=== PATIENT | male | born 1960 | race Caucasian/White ===

== ENCOUNTER 2024-12-19 21:37 | Observation (INO) | payer MEDICARE, OTHER, SELFPAY ==
[2024-12-19] VITALS (14 sets, daily range): BP systolic 116–167; BP diastolic 58–98; PULSE 50–63; RESP 14–20; O2SAT 95–98; BMI 29.8
[2024-12-19] MEDS: D5W IV (21:50)
[2024-12-19] MEDS: NITROGLYCERIN IV (21:50)
--- NOTE | 2024-12-19 21:55 | ECG_ITS ---
APPROVED REPORT Exam: Resting ECG HR:59 bpm ECG Measurements Heart Rate 59 AXES PA 128 P 48 QRSd 134 QRS -31 QT 463 T -39 QTc 462 Conclusion SINUS BRADYCARDIA LEFT AXIS DEVIATION [QRS AXIS < -30] RIGHT BUNDLE BRANCH BLOCK [120+ ms QRS DURATION, UPRIGHT V1, 40+ ms S IN I/aVL/V4/V5/V6] VOLTAGE CRITERIA FOR LVH [MEETS CRITERIA IN ONE OF: R(aVL), S(V1), R(V5), R(V5/V6)+S(V1)] MODERATE T-WAVE ABNORMALITY, CONSIDER ANTEROLATERAL ISCHEMIA [-0.1+ mV T-WAVE IN V3-V6] MODERATE T-WAVE ABNORMALITY, CONSIDER INFERIOR ISCHEMIA [-0.1+ mV T-WAVE IN II/aVF] ABNORMAL ECG UNCONFIRMED REPORT Electronically signed by : Chris Fish MD 12/20/2024 16:40:00
--- NOTE | 2024-12-19 22:31 | PC.NURSE ---
Pt arrived to unit at 2144
[2024-12-19] MEDS: PANTOPRAZOLE 40MG TABLET 40 MG PO (23:08)
[2024-12-20] VITALS (36 sets, daily range): BP systolic 116–153; BP diastolic 56–85; PULSE 48–65; RESP 11–19; TEMP 36.4–37.2; O2SAT 94–98; BMI 29.4; BMI 29.8
--- NOTE | 2024-12-20 00:21 | P.HP_ITS ---
<Statement entered by Guillermo Oswald MD - 12/20/24 12:57> Rounded on patient after nurse practitioner. Personally examined and interviewed patient. Agree with exam findings and care plan as documented. History of Present Illness *Admission Date: 12/19/24 *Reason for visit:: Atypical chest pain *History of present illness: Received a phone call from [facility] emergency room physician about Alex De La Torre. The doctor for me of the patient that was having atypical chest pain and that he had contacted Dr. Liu about this. That the patient had an unusual EKG showing Wellens sign. The patient had had an upper gastric discomfort but no crushing chest pain for about 3 days tonight the convinced him to go to the ER. For this unusual EKG was found. While at [facility] the patient received aspirin Lovenox and started on a nitroglycerin drip. Patient was then transported for direct admission to [facility] and placed in the stepdown unit to wait probable catheterization in the a.m. Talking with the patient and his he really does not have much medical history at all no medications from a provider he noted that his family does not have a lot of cardiac disease. That his mother is still alive in her 90s and that her father did not until he was in his 90s. The patient is a non- smoker of average weight and basically states he does not go to the physician. On arrival second EKG done being T wave inversions with no t wave elevation from V3 through V6. V1 and 2 show some T wave elevation before inversion. There was no ST elevation in any of the leads. Serial troponins ordered labs ordered for the a.m. [facility] Disclaimer: The information contained in this section may have been updated after the patient was seen, as this information can be updated by other users. Medical History Hypertension Social History (Updated 12/20/24 @ 00:41 by Lionel Conti APRN) Smoking Status: Never smoker alcohol intake: never current occupational status: employed Travel in the last 8 weeks?: None Have you lived/traveled outside US in past 30 days?: No Contact w/someone who lives/traveled outside US past 30 days?: No Exposure to someone with infectious disease in past 14 days?: No Do you have a fever (greater than 100.4 F or 38 C)?: No Have you tested positive for COVID-19?: No Exposed to someone with COVID-19 in past 14 days?: No Do you have a sore throat?: No Do you have a cough?: No Do you have any weakness?: No Do you have any diarrhea?: No Are you experiencing any unusual bleeding?: No Do you have any muscle aches/pain?: No Do you have any abdominal pain?: No Are you experiencing loss of taste or smell?: No Other Medical History Have you received the Flu Vaccine for this season: No Have you received the Pneumonia Vaccine: No Review of Systems Review of Systems Review of systems:: pertinent systems reviewed and negative unless documented below Review of systems (narrative): Patient's blood pressure still slightly elevated into around the 140s. On nitroglycerin drip patient denies any chest pain crushing pain radiation to arms neck or jaw. Only complaint is that the pain had been at the upper abdomen just below the rib cage Constitutional Constitutional: Reports as per HPI Eyes Eyes: Reports as per HPI ENT Ears, Nose, Mouth, and Throat: Reports as per HPI *Cardiovascular Cardiovascular: Reports as per HPI *Respiratory Respiratory: Reports as per HPI *Gastrointestinal Gastrointestinal: Reports as per HPI Comments: Upper abdominal discomfort right the bottom of the sternum *Genitourinary Genitourinary: Reports as per HPI *Musculoskeletal Musculoskeletal: Reports as per HPI Integumentary/Breasts Skin/Breast: Reports as per HPI *Neurologic Neurologic: Reports as per HPI Psychiatric Psychiatric: Reports as per HPI Endocrine Endocrine: Reports as per HPI Hematologic/Lymphatic Hematologic/Lymphatic: Reports as per HPI Allergic/Immunologic Allergic/Immunologic: Reports as per HPI Meds Home Medications and Allergies Home Medications ?Medication ?Instructions ?Recorded ?Confirmed ?Type Lactobacillus rhamnosus-Bifidobac. 1 cap PO DAILY 05/1512/20/24 History animalis 3 billion cell capsule ([employer]) dicyclomine 20 mg tablet 20 mg PO DAILY 12/20/2405/15 History losartan 50 mg tablet 50 mg PO DAILY 12/20/2405/15 History multivit,stress formula-zinc tablet 1 tab PO DAILY 05/1512/20/24 History pantoprazole 40 mg tablet,delayed 40 mg PO HS 12/20/24 12/20/24 History release New Prescriptions to Start Prescriptions: Allergies Allergy/AdvReac Type Severity Reaction Status Date / Time No Known Allergies Allergy Verified 12/19/24 21:57 Exam Data for Last 24 hours Vital signs and Labs for Last 24 Hours: Pulse O2 Del Method 62 Room Air 12/19/24 21:57 12/19/24 23:00 I & O for Last 24 hours: Intake & Output 12/17/24 12/18/24 12/19/24 12/20/24 05:59 05:59 05:59 05:59 Intake Total 8.925 / 8.925 Balance 8.925 / 8.925 Weight 232 lb 5.875 oz Constitutional Constitutional: no acute distress, average body habitus and cooperative *Routine HEENT Exam Head: Present normocephalic and atraumatic Eye: Present EOMI and PERRL ENT: Present mucous membranes moist and nares patent *Routine Neck Exam Neck: Present supple and full ROM *Routine Respiratory Exam Respiratory: Present CTA bilaterally, normal respiratory effort, able to speak in complete sentences and symmetric chest movement Comments: Normal O2 sats on room air *Routine Cardiovascular Exam Cardiovascular: Present RRR, Normal S1, Normal S2 and bradycardia *Routine Abdominal Exam Abdominal: Present soft and normoactive bowel sounds *Routine Rectal Exam Rectal:: deferred *Routine Genitalia Exam Genitalia:: deferred *Routine Extremities Exam Extremities: Present full ROM, pulses intact and normal capillary refill Comments: No edema *Routine Skin Exam Skin: Present intact, dry and normal turgor *Routine Neurological Exam Neurological: Present alert, oriented X3, CN II-XII intact, moving all extremities, vision grossly intact, hearing grossly intact and normal speech Routine Psychiatric Exam Psychiatric: Present normal affect, normal thought process, cooperative, good insight and good judgment H&P: Result Impressions 1. Unusual apt upper gastric discomfort question unstable angina. Secondary Wellens cardiac pattern on twelve-lead EKG. 2. Hypertension Assessment and Plan *Assessment and plan (1) Chest pain, atypical: Status: Acute Category: Medical Code(s): R07.89 - Other chest pain (2) EKG abnormalities: Status: Acute Category: Medical Code(s): R94.31 - Abnormal electrocardiogram [ECG] [EKG] (3) Elevated troponin: Status: Acute Category: Medical Code(s): R79.89 - Other specified abnormal findings of blood chemistry (4) Elevated blood pressure reading: Status: Acute Category: Medical Code(s): R03.0 - Elevated blood-pressure reading, without diagnosis of hypertension Plan 64-year-old male who presented with chest pain that began 2 days prior to presenting to the ER. Presented to [facility]. Due to abnormal EKG, cardiology was consulted and recommended transfer. Patient accepted to [facility] by medicine after discussion with ER physician at [facility]. Monitoring overnight. Initial troponin less than 0.02. Cardiology to evaluate. Problems addressed as follows: Angina T wave inversions Hypertension - Unclear etiology at this time. Will monitor on telemetry. T wave inversions still present on EKG on admission per my review. Initial serial troponins less than 0.02. - Per my review of EKG, initial EKG at [facility] shows Wellen sign. - initiate irbesartan 150 mg daily. Wean nitroglycerin drip as tolerated - Echocardiogram ordered for Friday morning. - CBC, CMP, magnesium ordered for the morning -Differential includes CAD, pancreatitis, cholelithiasis. Lipase ordered for the morning - Continue morphine 2 mg IV every 2 hours for breakthrough pain, monitor for toxicity - Continue pantoprazole 40 mg nightly Full code Cardiac diet, n.p.o. at midnight Lovenox 40 mg subcu daily
[2024-12-20 00:59] LABS: Troponin I 0.02 ng/ml (0.00-0.034)
--- NOTE | 2024-12-20 01:21 | EXP.EVENT.NO ---
Blood pressure has decreased to 120 systolic or sometimes little below. Patient's heart rate is right around 40 appears to be a bundle branch block but has in sinus rhythm at this time. Patient has complained slightly that he feels some of that pressure coming back that is under the rib cage left side. He did not want anything for the pain nitroglycerin had been decreased to 5 mics Plan at this time we will go ahead since the patient is awake and get the chest x-ray done and will add a lipase to his morning labs.
[2024-12-20 01:22] LABS: POC Glucose,Bedside 103 gm/dL (70-110)
--- NOTE | 2024-12-20 01:30 | XR_ITS ---
PROCEDURE INFORMATION: Exam: XR Chest Exam date and time: 12/20/2024 1:27 AM Age: 64 years old Clinical indication: Chest wall pain; Additional info: Unstable chest pain TECHNIQUE: Imaging protocol: Radiologic exam of the chest. Views: 1 view. COMPARISON: No relevant prior studies available. FINDINGS: Lungs: Unremarkable. No consolidation. Pleural spaces: Unremarkable. No pleural effusion. No pneumothorax. Heart/Mediastinum: Unremarkable. No cardiomegaly. Bones/joints: Unremarkable. IMPRESSION: No acute findings.
--- NOTE | 2024-12-20 01:33 | PC.NURSE ---
Addendum entered by Marjorie Villanueva RN 12/20/24 05:46: Pt stated that his heart rate is always low. Pt also reports he believes his gallbladder is causing his pain, that his pain is typically worse after he eats. Pt reports pain with palpation to RUQ. No guarding noted. Abdomen is soft/non-distended. Pain is gone at this time. Pt does report slight headache. Refused Tylenol. VSS. Remains on nitro gtt @ 5 mcg/min. Current BP 116/61. Original Note: Pt reports LUQ pain is starting to come back. States it is not bad. Sates it is the same area that was hurting that made him come to ED. Rates pain. 05/31. Does not want Tylenol at this time. Spoke with Angie Stewart NP about this and also about pts BP, low HR, and current nitro gtt rate. Nitro gtt is now infusing @ 5mcg/min d/t pts BP continuing to decrease.
[2024-12-20 03:29] LABS: Troponin I 0.02 ng/ml (0.00-0.034)
[2024-12-20 06:33] LABS: Hematocrit 41.9 % (42.0-52.0); Hemoglobin 14.7 g/dL (14.1-18.0); Immature Granulocytes % 0.6 %; Mean Corpuscular HGB Conc 35.1 g/dL (31.8-35.4); Mean Corpuscular Hemoglobin 30.1 pg (27.0-31.2); Mean Corpuscular Volume 85.7 fl (80-94); Nucleated Red Blood Cells % 0 %; Platelet Count 248 K/mm3 (142-424); Red Blood Count 4.89 M/mm3 (4.60-6.20); Red Cell Distribution Width-SD 43.9 fL; White Blood Count 12.8 K/mm3 (4.8-10.8)
[2024-12-20 06:54] LABS: Anion Gap 10.9 mEq/L (5-15); Blood Urea Nitrogen 14 mg/dl (9-20); Calcium 8.7 mg/dl (8.4-10.2); Carbon Dioxide 24 mmol/L (22.0-30.0); Chloride 105 mmol/L (98-107); Creatinine Clearance Estimated 108 mL/min (50-200); Creatinine,Serum 0.80 mg/dl (0.66-1.25); Estimated Glomerular Filt Rate 97 ml/min (>60); GFR (African American) 117 ML/MIN (>60); Glucose 106 mg/dl (74-100); Lipase 50 U/L (23-300); Magnesium 1.4 mg/dl (1.6-2.3); Potassium 3.9 mmoL/L (3.5-5.1); Sodium 136 mmol/L (136-145)
[2024-12-20 07:03] LABS: Troponin I 0.02 ng/ml (0.00-0.034)
--- NOTE | 2024-12-20 08:08 | CT_ITS ---
PROCEDURE INFORMATION: Exam: CT Abdomen And Pelvis With Contrast Exam date and time: 12/20/2024 8:35 AM Age: 64 years old Clinical indication: Abdominal pain; Epigastric TECHNIQUE: Imaging protocol: Computed tomography of the abdomen and pelvis with contrast. Radiation optimization: All CT scans at this facility use at least one of these dose optimization techniques: automated exposure control; mA and/or kV adjustment per patient size (includes targeted exams where dose is matched to clinical indication); or iterative reconstruction. Contrast material: ISOVUE; Contrast volume: 75 ml; Contrast route: IV; COMPARISON: CR (CHEST, CXR AP LANDSCAPE) 12/20/2024 1:27 AM FINDINGS: Lungs: 8 x 8 mm subpleural nodule in the medial left lower lobe. Lung bases otherwise clear. Diaphragm: Tiny hiatal hernia. Liver: Normal. No mass. Gallbladder and biliary ducts: Moderately distended gallbladder with moderate wall thickening, secondary to obstructive lamellated calculus measuring 2.3 cm at the gallbladder neck. Pancreas: Normal. No ductal dilation. Spleen: Normal. No splenomegaly. Adrenal glands: Normal. No mass. Kidneys and ureters: Benign-appearing right renal cysts. No further follow-up needed..No renal or ureteral calculi or obstruction bilaterally.. Stomach and bowel: No bowel obstruction or acute inflammation. Appendix: No evidence of appendicitis. Intraperitoneal space: Unremarkable. No free air. No significant fluid collection. Vasculature: Unremarkable. No abdominal aortic aneurysm. Lymph nodes: Unremarkable. No enlarged lymph nodes. Urinary bladder: Unremarkable as visualized. Reproductive: Unremarkable as visualized. Bones/joints: Unremarkable. No acute fracture. Soft tissues: Unremarkable. IMPRESSION: 1. Moderately distended gallbladder with moderate wall thickening, secondary to obstructive lamellated calculus measuring 2.3 cm at the gallbladder neck. 2. No bowel obstruction or acute inflammation. 3. 8 x 8 mm subpleural nodule in the medial left lower lobe. Nonspecific. May represent subsegmental atelectasis, infectious or inflammatory etiology. Recommend dedicated chest CT for complete evaluation. COMMENTS: Consistent with the [employer]'s Incidental Findings Committee white paper (J Am Hilary Radiol 2018): Any incidental renal lesion less than 1 cm or classified as too small to characterize, or any incidental cystic renal lesion characterized as simple-appearing, is likely benign. No follow-up imaging is recommended for these lesions per consensus recommendations based on imaging criteria.
[2024-12-20] MEDS: IRBESARTAN 150MG TAB 150 MG PO (08:19)
[2024-12-20 08:22] LABS: Alanine Aminotransferase 30 U/L (12-78); Albumin Level 3.8 g/dl (3.5-5.0); Albumin/Globulin Ratio 1.4 (1.1-1.8); Alkaline Phosphatase 62 U/L (38-126); Anion Gap 11.8 mEq/L (5-15); Aspartate Amino Transferase 43 U/L (17-59); Bilirubin,Total 0.8 mg/dl (0.2-1.3); Blood Urea Nitrogen 14 mg/dl (9-20); Calcium 8.8 mg/dl (8.4-10.2); Carbon Dioxide 22 mmol/L (22.0-30.0); Chloride 105 mmol/L (98-107); Creatinine Clearance Estimated 108 mL/min (50-200); Creatinine,Serum 0.80 mg/dl (0.66-1.25); Estimated Glomerular Filt Rate 97 ml/min (>60); GFR (African American) 117 ML/MIN (>60); Globulin 2.8 g/dL (1.3-3.2); Glucose 109 mg/dl (74-100); Lipase 57 U/L (23-300); Potassium 3.8 mmoL/L (3.5-5.1); Sodium 135 mmol/L (136-145); Total Protein,Serum 6.6 g/dl (6.3-8.2)
--- NOTE | 2024-12-20 08:25 | PC.NURSE ---
radiology at bedside to take patient down to ct scan for ct of abdomen with contrast. pt going down by wheelchair
--- NOTE | 2024-12-20 08:40 | PC.NURSE ---
patient is back from ct scan
[2024-12-20] MEDS: SODIUM CHLORIDE 0.9% 10ML SYR (RAD ONLY) 10 ML IV (08:48)
[2024-12-20] MEDS: IOPAMIDOL-370 (76%);100ML BOTTLE 75 ML IV (08:48)
[2024-12-20] MEDS: MAGNESIUM SULFATE IN WATER 2 GM/50 ML PIGGYBACK IV ×3 (09:27→11:56)
--- NOTE | 2024-12-20 10:04 | PC.NURSE ---
called report to Erasmo Mckenzie RN on med surge pt is going to room 202.
--- NOTE | 2024-12-20 10:13 | PC.NURSE ---
patient transfer from ICU to [facility] via wheelchair with BROOKE Clancy @[id number]
[2024-12-20] MEDS: ACETAMINOPHEN 325MG TAB 650 MG PO (10:51)
--- NOTE | 2024-12-20 12:06 | HMH.PHAINT1 ---
Pharmacy Intervention Comments: MED LIST CORRECTED WITH PATIENT LIST AND FILL HX.
--- NOTE | 2024-12-20 12:19 | P.PN_ITS ---
Subjective *Date: 12/20/24 *Time: 12:19 Interval history: States pain somewhat better today. Mainly in the upper abdomen. Denies any otilia substernal pain or dyspnea. No nausea or vomiting. Stable on room air. Afebrile Questionnaires [facility] Link: [facility] Website Medical Exam Vital signs and Labs for Last 24 Hours: Vital Signs Temp Pulse Pulse Pulse Resp BP BP 12/20/24 11:58 98.1 F 57 L 16 126/76 12/20/24 10:00 56 L 17 138/78 12/20/24 09:00 12/20/24 08:10 97.6 F 56 L 11 L 124/77 12/20/24 08:00 58 L 16 124/71 12/20/24 08:00 54 L 12/20/24 08:00 54 L 12/20/24 07:00 12/20/24 06:40 134/74 12/20/24 06:40 56 L 17 12/20/24 06:00 127/72 12/20/24 06:00 54 L 16 12/20/24 05:20 123/71 12/20/24 05:20 53 L 16 12/20/24 05:00 12/20/24 04:16 51 L 12/20/24 04:10 51 L 18 125/58 L 12/20/24 04:01 55 L 12 134/76 12/20/24 04:00 98.0 F 12/20/24 03:50 55 L 18 128/73 12/20/24 03:40 52 L 18 129/65 12/20/24 03:30 52 L 16 119/59 L 12/20/24 03:21 54 L 12 123/74 12/20/24 03:00 48 L 18 119/56 L 12/20/24 03:00 12/20/24 02:50 51 L 18 131/69 12/20/24 02:50 49 L 17 131/69 12/20/24 02:40 51 L 17 122/67 12/20/24 02:30 50 L 18 130/71 12/20/24 02:30 49 L 18 130/71 12/20/24 02:20 51 L 17 131/70 12/20/24 02:20 51 L 17 131/70 12/20/24 02:10 54 L 19 124/74 12/20/24 02:01 52 L 15 123/58 L 12/20/24 02:00 50 L 17 123/58 L 12/20/24 01:50 51 L 15 133/69 12/20/24 01:40 50 L 15 133/73 12/20/24 01:30 51 L 18 138/73 12/20/24 01:20 51 L 18 127/59 L 12/20/24 01:10 53 L 16 116/56 L 12/20/24 01:00 12/20/24 00:53 51 L 15 127/71 12/20/24 00:40 52 L 17 127/72 12/20/24 00:20 53 L 16 124/62 12/20/24 00:10 53 L 16 127/61 12/20/24 00:00 50 L 16 127/73 12/20/24 00:00 52 L 12/20/24 00:00 97.9 F 12/19/24 23:51 51 L 17 132/72 12/19/24 23:40 50 L 17 116/58 L 12/19/24 23:30 52 L 16 128/78 12/19/24 23:20 52 L 17 131/75 12/19/24 23:10 54 L 16 136/76 12/19/24 23:00 54 L 14 131/77 12/19/24 23:00 12/19/24 22:50 57 L 17 134/76 12/19/24 22:40 56 L 17 144/79 H 12/19/24 22:20 63 14 133/75 12/19/24 22:10 62 20 135/82 12/19/24 22:07 60 20 146/85 H 12/19/24 21:57 62 12/19/24 21:55 62 12/19/24 21:50 61 167/98 H Pulse Ox O2 Del Method O2 Flow Rate 12/20/24 11:58 96 12/20/24 10:00 95 Room Air 12/20/24 09:00 Room Air 12/20/24 08:10 96 Room Air 12/20/24 08:00 95 Room Air 12/20/24 08:00 96 Room Air 12/20/24 08:00 12/20/24 07:00 Room Air 12/20/24 06:40 12/20/24 06:40 96 12/20/24 06:00 12/20/24 06:00 95 12/20/24 05:20 12/20/24 05:20 95 12/20/24 05:00 Room Air 12/20/24 04:16 12/20/24 04:10 95 Nasal Cannula 6 12/20/24 04:01 96 Nasal Cannula 6 12/20/24 04:00 12/20/24 03:50 96 Nasal Cannula 6 12/20/24 03:40 94 L Nasal Cannula 6 12/20/24 03:30 96 Nasal Cannula 6 12/20/24 03:21 96 Nasal Cannula 6 12/20/24 03:00 94 L Nasal Cannula 6 12/20/24 03:00 Room Air 12/20/24 02:50 96 Nasal Cannula 5 12/20/24 02:50 97 Room Air 12/20/24 02:40 94 L Nasal Cannula 5 12/20/24 02:30 94 L Nasal Cannula 5 12/20/24 02:30 95 Room Air 12/20/24 02:20 94 L Nasal Cannula 5 12/20/24 02:20 95 Room Air 12/20/24 02:10 94 L Nasal Cannula 6 12/20/24 02:01 94 L Nasal Cannula 6 12/20/24 02:00 95 Room Air 12/20/24 01:50 97 Room Air 12/20/24 01:40 98 Room Air 12/20/24 01:30 97 Room Air 12/20/24 01:20 95 Room Air 12/20/24 01:10 96 Room Air 12/20/24 01:00 Room Air 12/20/24 00:53 96 Room Air 12/20/24 00:40 95 Room Air 12/20/24 00:20 95 Room Air 12/20/24 00:10 95 Room Air 12/20/24 00:00 96 Room Air 12/20/24 00:00 12/20/24 00:00 12/19/24 23:51 96 Room Air 12/19/24 23:40 95 Room Air 12/19/24 23:30 96 Room Air 12/19/24 23:20 96 Room Air 12/19/24 23:10 96 Room Air 12/19/24 23:00 96 Room Air 12/19/24 23:00 Room Air 12/19/24 22:50 96 Room Air 12/19/24 22:40 96 Room Air 12/19/24 22:20 98 Room Air 12/19/24 22:10 96 12/19/24 22:07 96 Room Air 12/19/24 21:57 Room Air 12/19/24 21:55 12/19/24 21:50 96 Room Air Intake and Output 12/19/24 12/20/24 12/20/24 23:59 07:59 15:59 Intake Total 8.925 / 8.925 4.3 / 115.1 110.8 / 115.1 Output Total 400 / 400 Balance 8.925 / 8.925 4.3 / -284.9 -289.2 / -284.9 Intake: Intake, Total IV Amount 8.925 / 8.925 4.3 / 115.1 110.8 / 115.1 Magnesium Sulfate in Water 2 gm 100 / 100 In 50 ml @ 50 mls/hr IV Q1H [facility] Rx#:[id number] Nitroglycerin in 5 % Dextrose 8.925 / 8.925 4.3 / 15.1 10.8 / 15.1 250 ml @ 5 MCG/MIN 1.5 mls/hr IV .Q24H [facility] Rx#:[id number] Output: Output, Urine Amount 400 / 400 Other: Weight 105.4 kg 103.918 kg 105.4 kg Patient Weight 12/20/24 23:59 Weight 105.4 kg Laboratory Results - last 24 hr 12/19/24 23:45: Troponin I 0.02 12/20/24 01:13: POC Glucose 103 12/20/24 02:35: Troponin I 0.02 12/20/24 05:07: Sodium 135 L, Potassium 3.8, Chloride 105, Carbon Dioxide 22, Anion Gap 11.8, BUN 14, Creatinine 0.80, Estimated Creat Clear 108, Estimated GFR 97, Est GFR ( Amer) 117, Glucose 109 H, Calcium 8.8, Total Bilirubin 0.8, AST 43, ALT 30, Alkaline Phosphatase 62, Total Protein 6.6, Albumin 3.8, Globulin 2.8, Albumin/Globulin Ratio 1.4, Lipase 57 12/20/24 05:27: WBC 12.8 H, RBC 4.89, Hgb 14.7, Hct 41.9 L, MCV 85.7, MCH 30.1, MCHC 35.1, RDW 14.2, Plt Count 248, MPV 12.3 H, Neut % (Auto) 72.5, Lymph % (Auto) 15.1, [place] % (Auto) 9.4 H, Eos % (Auto) 2.2, Baso % (Auto) 0.2, Neut # (Auto) 9.3 H, Lymph # (Auto) 1.9, [place] # (Auto) 1.2 H, Eos # (Auto) 0.3, Baso # (Auto) 0.0, Sodium 136, Potassium 3.9, Chloride 105, Carbon Dioxide 24, Anion Gap 10.9, BUN 14, Creatinine 0.80, Estimated Creat Clear 108, Estimated GFR 97, Est GFR ( Amer) 117, Glucose 106 H, Calcium 8.7, Magnesium 1.4 L, Troponin I 0.02, Lipase 50 I & O for Labs for Last 24 Hours: Intake & Output 12/17/24 12/18/24 12/19/24 12/20/24 23:59 23:59 23:59 23:59 Intake Total 8.925 / 8.925 115.1 / 115.1 Output Total 400 / 400 Balance 8.925 / 8.925 -284.9 / -284.9 Weight 105.4 kg 105.4 kg Constitutional: Present no acute distress, average body habitus and cooperative Head: Present atraumatic and normocephalic ENT: Present normal exam Respiratory: Absent respiratory distress, rhonchi, stridor, wheezes or crackles Cardiac: Present Reg Rate and Rhythm GI: Present soft, tenderness (Nonfocal, diffuse in upper abdomen) and normal bowel sounds; Absent distention, guarding or rebound Extremities: Present normal inspection and full ROM Skin: Present intact; Absent erythema Neuro: Present Grossly Intact, alert, awake, oriented x 3 and moves all extremities Assessment and Plan *Assessment and plan (1) Chest pain, atypical: Status: Acute Category: Medical Code(s): R07.89 - Other chest pain (2) EKG abnormalities: Status: Acute Category: Medical Code(s): R94.31 - Abnormal electrocardiogram [ECG] [EKG] (3) Elevated troponin: Status: Acute Category: Medical Code(s): R79.89 - Other specified abnormal findings of blood chemistry (4) Elevated blood pressure reading: Status: Acute Category: Medical Code(s): R03.0 - Elevated blood-pressure reading, without diagnosis of hypertension (5) T wave inversion in EKG: Status: Acute Category: Medical Code(s): R94.31 - Abnormal electrocardiogram [ECG] [EKG] Plan 64-year-old male who presented with chest pain that began 2 days prior to presenting to the ER. Presented to [facility]. Due to abnormal EKG, cardiology was consulted and recommended transfer. Patient accepted to [facility] by medicine after discussion with ER physician at [facility] . Monitored on telemetry overnight. Serial troponins less than 0.02. Still having mild epigastric pain but no otliia chest pain. Cardiology to evaluate in the morning. Problems addressed as follows: Angina T wave inversions Hypertension - Unclear etiology at this time. Will monitor on telemetry. T wave inversions still present. Initial serial troponins less than 0.02. - Per my review of EKG, initial EKG at [facility] shows Wellen sign. - initiate irbesartan 150 mg daily. Will discontinue nitroglycerin drip - Echocardiogram ordered for the morning Abdominal pain - Patient does mention component of his pain that began yesterday after eating at [employer]. Obtained CT of abdomen that shows moderately distended gallbladder with wall thickening and stone obstructing per my review. Stone measures a little over 2 cm at the gallbladder neck. Liver enzymes normal with bilirubin 0.8, AST 43, ALT 30, alk phos 62. Lipase 50 -Repeat CBC, CMP, magnesium ordered for the morning. White count of 12.8. Will initiate Zosyn 3.375 g every 8 hours empirically for now for intra-abdominal infection. -Surgery consulted to evaluate patient in the morning. - Continue morphine 2 mg IV every 4 hours for breakthrough pain - Continue pantoprazole 40 mg nightly Full code Cardiac diet, n.p.o. at midnight Lovenox 40 mg subcu once today
[2024-12-20] MEDS: PIPERCILLIN/TAZO 3.375 GM in 0.9 % SODIUM CHLORIDE 50 ML IV ×2 (13:45→20:19)
[2024-12-20] MEDS: PANTOPRAZOLE 40MG TABLET 40 MG PO (20:18)
[2024-12-21] VITALS (7 sets, daily range): BP systolic 120–142; BP diastolic 60–75; PULSE 55–68; RESP 12–19; TEMP 36.6–36.9; O2SAT 96–97; BMI 28.3; BMI 29.5
[2024-12-21] MEDS: PIPERCILLIN/TAZO 3.375 GM in 0.9 % SODIUM CHLORIDE 50 ML IV ×2 (04:23→15:24)
--- NOTE | 2024-12-21 05:52 | CA_ITS ---
APPROVED REPORT EXAM: Comprehensive 2D, Doppler, and color-flow Echocardiogram Specialty Department Supervisor: Ciarra Klein RT(R) Ht: 6 ft 2 in Wt: 232lbs BSA: 2.31 BP: 119/56 mmHg Indications: chest pain, elevated troponin 2D Dimensions LA Volume 36.30 mL LA Volume Index 15.65 mL/m2 (M/F) 16-34 EF AP4 56.00 % GL Strain -16.0 % M-Mode Dimensions RVDd 3.13 cm (0.9-2.6) LA Diam 3.83 cm (1.9-4.0) LVDd 5.25 cm (3.5-5.7) LVDs 3.77 cm (3.5-5.7) IVSd 0.93 cm (0.6-1.1) PWd 0.97 cm (0.6-1.1) EF (Teich) 54.10% FS 28.20% EDV (Teich) 132.40 mL ESV (Teich) 60.80 mL LV Diastology E Decel Time 307 (160-240 msec) E/A Ratio 0.54 Mitral Valve MV A Velocity 89.0 (40-130 cm/s) E/A Ratio 0.54 Tricuspid Valve TR P. Velocity 200.00 cm/s Left Ventricle The left ventricle is normal size. Left ventricular systolic function is normal. The left ventricular ejection fraction is within the normal range. There is increased left ventricular wall thickness. There is normal LV segmental wall motion. The left ventricular diastolic function is normal. LVEF is 55%. Right Ventricle The right ventricle is normal size. The right ventricular systolic function is normal. Atria The left atrium size is normal. The right atrium size is normal. There is no color Doppler evidence of interatrial shunt. Aortic Valve The aortic valve opens well. There is no hemodynamically significant aortic valvular stenosis. No aortic regurgitation is present. Mitral Valve The mitral valve is normal in structure. No evidence of mitral valve stenosis. Trace mitral regurgitation is present. Tricuspid Valve The tricuspid valve leaflets are thin and pliable. Trace tricuspid regurgitation. There is insufficient TR jet to estimate RVSP. Pulmonic Valve The pulmonary valve is grossly normal in structure. Trace pulmonic valve regurgitation is present. Great Vessels The aortic root is normal in size. IVC is normal in size and collapses >50% with inspiration. Pericardium There is no pericardial effusion. Other Information Study Quality: Fair Conclusion Normal biventricular systolic function. No significant valvular stenosis or regurgitation. Electronically signed by : Sona Nunez MD 12/21/2024 12:34:05
--- NOTE | 2024-12-21 05:56 | PC.NURSE ---
Pt AOx4, pleasant. Continually denies pain or any additional needs throughout shift. Resting in bed with eyes open, respirations even and unlabored. Bed is low, locked, and call light is in reach.
[2024-12-21 06:11] LABS: Hematocrit 43.4 % (42.0-52.0); Hemoglobin 15.4 g/dL (14.1-18.0); Immature Granulocytes % 0.8 %; Mean Corpuscular HGB Conc 35.5 g/dL (31.8-35.4); Mean Corpuscular Hemoglobin 30.2 pg (27.0-31.2); Mean Corpuscular Volume 85.1 fl (80-94); Nucleated Red Blood Cells % 0 %; Platelet Count 245 K/mm3 (142-424); Red Blood Count 5.10 M/mm3 (4.60-6.20); Red Cell Distribution Width-SD 43.8 fL; White Blood Count 12.3 K/mm3 (4.8-10.8)
[2024-12-21 06:23] LABS: Alanine Aminotransferase 50 U/L (12-78); Albumin Level 3.9 g/dl (3.5-5.0); Albumin/Globulin Ratio 1.3 (1.1-1.8); Alkaline Phosphatase 55 U/L (38-126); Anion Gap 11.9 mEq/L (5-15); Aspartate Amino Transferase 44 U/L (17-59); Bilirubin,Total 1.5 mg/dl (0.2-1.3); Blood Urea Nitrogen 14 mg/dl (9-20); Calcium 8.7 mg/dl (8.4-10.2); Carbon Dioxide 23 mmol/L (22.0-30.0); Chloride 105 mmol/L (98-107); Creatinine Clearance Estimated 95 mL/min (50-200); Creatinine,Serum 1.10 mg/dl (0.66-1.25); Estimated Glomerular Filt Rate 67 ml/min (>60); GFR (African American) 81 ML/MIN (>60); Globulin 3.0 g/dL (1.3-3.2); Glucose 106 mg/dl (74-100); Magnesium 1.9 mg/dl (1.6-2.3); Potassium 3.9 mmoL/L (3.5-5.1); Sodium 136 mmol/L (136-145); Total Protein,Serum 6.9 g/dl (6.3-8.2)
[2024-12-21 06:48] LABS: Cholesterol 144 mg/dl (140-200); HDL Cholesterol 36 mg/dl (40-60); Triglycerides 72 mg/dl (30-150)
--- NOTE | 2024-12-21 06:59 | US_ITS ---
FINAL REPORT CLINICAL HISTORY: eval GB FINDINGS: Sonographic images of the right upper quadrant were obtained. The pancreas is partially obscured.The liver has an unremarkable appearance. The gallbladder is enlarged. There is a small amount of sludge. An echogenic shadowing focus is seen in the neck of the gallbladder, probably representing a stone. There is no evidence of biliary ductal dilatation.The common duct measures 3 mm. Limited images of the right kidney demonstrate benign-appearing cysts in the right kidney measuring up to 1.9 cm. No hydronephrosis. IMPRESSION: Stone and sludge in a distended gallbladder. Right kidney cyst. Reviewed, Interpreted and Dictated by Demetris Drake MD Transcribed by Milena Plascencia Authenticated and [facility]
--- NOTE | 2024-12-21 07:46 | EXP.SURG.CON ---
History of Present Illness *Admission Date: 12/19/24 *Reason for visit:: Calculous cholecystitis *History of present illness: This is a 64-year-old gentleman seen in consultation from the primary service for evaluation regarding possible gallbladder disease. His initial presenting symptoms are forwarded below as part of the emergency department evaluation/admission H&P. Currently he feels much better . No fevers. No jaundice. Part of the patient's initial evaluation included a CT scan of the abdomen pelvis that revealed a moderately distended gallbladder with moderate wall thickening and a 2.3 cm calculus at the gallbladder neck. Forwarded from emergency department evaluation/admission H&P: Received a phone call from [facility] emergency room physician about Alex De La Torre. The doctor for me of the patient that was having atypical chest pain and that he had contacted Dr. Liu about this. That the patient had an unusual EKG showing Wellens sign. The patient had had an upper gastric discomfort but no crushing chest pain for about 3 days tonight the convinced him to go to the ER. For this unusual EKG was found. While at [facility] the patient received aspirin Lovenox and started on a nitroglycerin drip. Patient was then transported for direct admission to [facility] and placed in the stepdown unit to wait probable catheterization in the a.m. Talking with the patient and his he really does not have much medical history at all no medications from a provider he noted that his family does not have a lot of cardiac disease. That his mother is still alive in her 90s and that her father did not until he was in his 90s. The patient is a non-smoker of average weight and basically states he does not go to the physician. On arrival second EKG done being T wave inversions with no t wave elevation from V3 through V6. V1 and 2 show some T wave elevation before inversion. There was no ST elevation in any of the leads. Serial troponins ordered labs ordered for the a.m. [facility] Disclaimer: The information contained in this section may have been updated after the patient was seen, as this information can be updated by other users. Medical History Hypertension Social History (Updated 12/20/24 @ 00:41 by Lionel Conti APRN) Smoking Status: Never smoker alcohol intake: never current occupational status: employed Travel in the last 8 weeks?: None Have you lived/traveled outside [place] in past 30 days?: No Contact w/someone who lives/traveled outside US past 30 days?: No Exposure to someone with infectious disease in past 14 days?: No Do you have a fever (greater than 100.4 F or 38 C)?: No Have you tested positive for COVID-19?: No Exposed to someone with COVID-19 in past 14 days?: No Do you have a sore throat?: No Do you have a cough?: No Do you have any weakness?: No Do you have any diarrhea?: No Are you experiencing any unusual bleeding?: No Do you have any muscle aches/pain?: No Do you have any abdominal pain?: No Are you experiencing loss of taste or smell?: No Review of Systems *Neurologic Neurologic: Reports as per [facility] Meds Home Medications and Allergies Home Medications ?Medication ?Instructions ?Recorded ?Confirmed ?Type Lactobacillus rhamnosus-Bifidobac. 1 cap PO DAILY 12/20/24 12/20/24 History animalis 3 billion cell capsule (Encarnate) dicyclomine 20 mg tablet 20 mg PO DAILY 12/20/24 12/20/24 History losartan 50 mg tablet 50 mg PO DAILY 12/20/24 12/20/24 History multivit,stress formula-zinc tablet 1 tab PO DAILY 12/20/24 12/20/24 History pantoprazole 40 mg tablet,delayed 40 mg PO HS 12/20/24 12/20/24 History release New Prescriptions to Start Prescriptions: Allergies Allergy/AdvReac Type Severity Reaction Status Date / Time No Known Allergies Allergy Verified 12/19/24 21:57 Exam (Inpt) Vital signs and Labs for Last 24 Hours: Temp Pulse Resp BP Pulse Ox O2 Del Method O2 Flow Rate 98.4 F 62 12 121/75 96 Room Air 6 09/02/25 04:00 12/21/24 04:00 12/21/24 04:00 12/21/24 04:00 12/21/24 04:00 12/21/24 06:31 12/20/24 04:10 Laboratory Results - last 24 hr 12/20/24 05:07: Sodium 135 L, Potassium 3.8, Chloride 105, Carbon Dioxide 22, Anion Gap 11.8, BUN 14, Creatinine 0.80, Estimated Creat Clear 108, Estimated GFR 97, Est GFR ( Amer) 117, Glucose 109 H, Calcium 8.8, Total Bilirubin 0.8, AST 43, ALT 30, Alkaline Phosphatase 62, Total Protein 6.6, Albumin 3.8, Globulin 2.8, Albumin/Globulin Ratio 1.4, Lipase 57 12/20/24 05:27: Potassium 3.9, BUN 14, Creatinine 0.80, Est GFR ( Amer) 117, Glucose 106 H 12/21/24 05:50: WBC 12.3 H, RBC 5.10, Hgb 15.4, Hct 43.4, MCV 85.1, MCH 30.2, MCHC 35.5 H, RDW 14.0, Plt Count 245, MPV 11.9 H, Neut % (Auto) 69.3, Lymph % (Auto) 15.7, [place] % (Auto) 12.3 H, Eos % (Auto) 1.6, Baso % (Auto) 0.3, Neut # (Auto) 8.5 H, Lymph # (Auto) 1.9, [place] # (Auto) 1.5 H, Eos # (Auto) 0.2, Baso # (Auto) 0.0, Sodium 136, Potassium 3.9, Chloride 105, Carbon Dioxide 23, Anion Gap 11.9, BUN 14, Creatinine 1.10 D, Estimated Creat Clear 95, Estimated GFR 67, Est GFR ( Amer) 81 D, Glucose 106 H, Calcium 8.7, Magnesium 1.9 D, Total Bilirubin 1.5 H, AST 44, ALT 50 D, Alkaline Phosphatase 55, Total Protein 6.9, Albumin 3.9, Globulin 3.0, Albumin/Globulin Ratio 1.3, Triglycerides 72, Cholesterol 144, LDL Cholesterol Direct 84.91 L, VLDL Cholesterol 14, HDL Cholesterol 36 L, Cholesterol/HDL Ratio 4.0 H I & O for Labs for Last 24 Hours: Intake & Output 12/18/24 12/19/24 12/20/24 12/21/24 11:59 11:59 11:59 11:59 Intake Total 124.025 / 124.025 760 / 760 Output Total 400 / 400 300 / 300 Balance -275.975 / -275.975 460 / 460 Weight 232 lb 5.875 oz 221 lb Constitutional: no acute distress Respiratory: Absent respiratory distress Cardiac: Absent Tachycardia GI: Present soft Results Labs 12/21/24 05:50 12/21/24 05:50 Labs: Laboratory Results - last 24 hr 12/20/24 05:07: Sodium 135 L, Potassium 3.8, Chloride 105, Carbon Dioxide 22, Anion Gap 11.8, BUN 14, Creatinine 0.80, Estimated Creat Clear 108, Estimated GFR 97, Est GFR ( Amer) 117, Glucose 109 H, Calcium 8.8, Total Bilirubin 0.8, AST 43, ALT 30, Alkaline Phosphatase 62, Total Protein 6.6, Albumin 3.8, Globulin 2.8, Albumin/Globulin Ratio 1.4, Lipase 57 12/20/24 05:27: Potassium 3.9, BUN 14, Creatinine 0.80, Est GFR ( Amer) 117, Glucose 106 H 12/21/24 05:50: WBC 12.3 H, RBC 5.10, Hgb 15.4, Hct 43.4, MCV 85.1, MCH 30.2, MCHC 35.5 H, RDW 14.0, Plt Count 245, MPV 11.9 H, Neut % (Auto) 69.3, Lymph % (Auto) 15.7, [place] % (Auto) 12.3 H, Eos % (Auto) 1.6, Baso % (Auto) 0.3, Neut # (Auto) 8.5 H, Lymph # (Auto) 1.9, [place] # (Auto) 1.5 H, Eos # (Auto) 0.2, Baso # (Auto) 0.0, Sodium 136, Potassium 3.9, Chloride 105, Carbon Dioxide 23, Anion Gap 11.9, BUN 14, Creatinine 1.10 D, Estimated Creat Clear 95, Estimated GFR 67, Est GFR ( Amer) 81 D, Glucose 106 H, Calcium 8.7, Magnesium 1.9 D, Total Bilirubin 1.5 H, AST 44, ALT 50 D, Alkaline Phosphatase 55, Total Protein 6.9, Albumin 3.9, Globulin 3.0, Albumin/Globulin Ratio 1.3, Triglycerides 72, Cholesterol 144, LDL Cholesterol Direct 84.91 L, VLDL Cholesterol 14, HDL Cholesterol 36 L, Cholesterol/HDL Ratio 4.[address] scan - abdomen: report reviewed and image reviewed CT scan - pelvis: report reviewed and image reviewed Assessment and Plan *Assessment and plan (1) Calculous cholecystitis: Status: Acute Qualifiers: Cholecystitis acuity: unspecified acuity Biliary obstruction: without biliary obstruction Qualified Code(s): K80.10 - Calculus of gallbladder with chronic cholecystitis without obstruction Category: Medical Code(s): K80.10 - Calculus of gallbladder with chronic cholecystitis without obstruction Plan: Radiographic evidence of uncertain significance as this may represent chronic anomaly, acute anomaly, or acute on chronic anomaly. The patient's recent symptomatology may or may not be related to biliary disease (at least to some degree). He is currently undergoing evaluation by the cardiology service. If he is deemed an appropriate operative candidate, proceeding with laparoscopic cholecystectomy in the near future likely warranted. (2) Hyperbilirubinemia: Status: Acute Category: Medical Code(s): E80.6 - Other disorders of bilirubin metabolism Plan: Possibly transient in nature. Possibly secondary to acute on chronic calculous cholecystitis. 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 Continue serial evaluation
[2024-12-21] MEDS: IRBESARTAN 150MG TAB 150 MG PO (08:02)
--- NOTE | 2024-12-21 11:20 | CT_ITS ---
APPROVED REPORT Textile Finisher: CLINICAL INDICATION Chest Pain TECHNIQUE Image Acquisition: A 128 slice MDCT scanner ([employer] View) was used for data acquisition. A noncontrast coronary calcium scan was performed. A CT attenuation threshold of 130 Hounsfield units (HU) was used for the detection of calcium in contiguous voxels of 1 sq mm in area to be counted as individual lesions. Bolus tracking in the ascending aorta with a threshold of 180 HU was performed. Immediately afterwards, ECG synchronized cardiac CT was then performed from the cardiac base to apex using retrospective gating with ECG tube current modulation. A total of 85 mL of Isovue 370 mg/mL contrast medium was administered at 5 mL/sec followed by a saline flush using a biphasic injection protocol. A tube voltage of 120 KVp was used. The average heart rate at the time of acquisition was 56 bpm and regular. Image Reconstruction Transaxial images were reconstructed at 0.67 mm slide thickness. Data was reviewed interactively on an advanced workstation capable of 2 and 3-dimensional displays in all conventional reconstruction formats, including multiplanar reformations, maximum intensity projections, curved multiplanar reformations, and volume rendered reconstructions. When applicable, selected routine images describing the relevant coronary anatomy and pathology were saved and sent to PACS. Complications None Technical Quality Overall image quality was good. Coronary artery opacification was adequate. Total DLP (Dose-Length Product) is 1775.3 mGy-cm. The reported value represents the total of one or more individual components during the CT acquisition of this date and at this time, and as such, the same value may appear in more than one CT report depending on the interpreting/reporting physicians. COMPARISON None FINDINGS CT Coronary Calcium Scoring LMA (Left Main Artery) = 0 LAD (Left Anterior Descending) = 0 LCX (Left Coronary Circumflex) = 0 RCA (Right Coronary Artery) = 0 Total Calcium Score = 0 using the AJ-130 method. The interpretation of the calcium heart score is based on the following continuum*: 0 = no calcified plaque detected (risk of coronary artery disease is very low ??? less than 5%) 1-10 = calcium detected in extremely minimal levels (risk of coronary diseases is still low ??? less than 10%) 11-100 = mild levels of plaque detected with certainty (mild or minimal narrowing of heart arteries is likely) 101-400 = definite,at least moderate levels of plaque detected (relatively high risk of a heart attack within 3-5 years) >401-999 = extensive levels of plaque detected (high risk of heart attack, high levels of vascular disease are present, high likelihood of at least one significant coronary narrowing) *The calcium heart score quantifies the burden of coronary calcification/plaque in the coronary arteries. The calcium heart score is not able to evaluate the presence or burden of non-calcified (i.e. soft) plaque. There is no identifiable calcification in the aortic valve, mitral annulus or mitral valve, pericardium, or myocardium. Coronary CT Angiography The coronary arterial system is right dominant. Quantitative Stenosis Grading: Left Main (LM): The left main originates normally from the left sinus of Valsalva. The LM bifurcates into the left anterior descending artery and left circumflex artery. The LM is patent with no evidence of atherosclerosis. Left Anterior Descending (LAD) and Diagonal Branches: The LAD gives off 3 diagonal branch(es). The LAD and its branches are patent with no evidence of atherosclerosis. There is no evidence of LAD-myocardial bridge. Left Circumflex (LCX) and Obtuse Marginals (OM): The LCX gives off 1 Obtuse Marginal (OM) branch(es). The LCX and its branches are patent with no evidence of atherosclerosis. Right Coronary Artery (RCA): The RCA originates normally from the right sinus of Valsalva. The RCA gives off a posterior descending artery (PDA) and posterolateral (PL) branches. There is a noncalcified plaque noted in the ostial RCA with up to 25-50% luminal stenosis. Non-Coronary Cardiac Findings: Analysis of the left ventricular (LV) structure and function was performed after 3-D reconstruction of the LV from axial images, with user-corrected automatic contouring for assessment of LV volumes and user-defined reconstruction from oblique planes for measurement of 3-D cardiac structure and function. -The left ventricle systolic function is normal. -There is no left atrial appendage filling defect. Two right pulmonary veins and two left pulmonary veins drain normally into the left atrium. -No pericardial thickening or calcification. -Central and branch pulmonary arteries in the [id number] are unremarkable. -Thoracic aorta within the visualized thoracic aortic-branches in the [id number] is unremarkable. Extracardiac Structures No significant extra-cardiac findings. Note, however, that this study is focused on the cardiac findings. IMPRESSION -Absence of coronary calcification with an Agatston score = 0 using the AJ-130 method. -Noncalcified plaque noted in the ostial RCA with up to 25-50% luminal stenosis, but no evidence of significant flow-limiting atherosclerosis of the coronary arteries. -CAD-RADS 2. Management recommendations per ACC/AHA guidelines*, as clinically appropriate. *Recommendations: CAD RADS 0: Reassurance. Consider non-atherosclerotic causes of chest pain. CAD RADS 1: Consider non-atherosclerotic causes of chest pain. Consider preventive therapy and risk factor modification. CAD RADS 2: Consider non-atherosclerotic causes of chest pain. Consider preventive therapy and risk factor modification, particularly for patients with nonobstructive plaque in multiple segments. CAD RADS 3: Consider further functional testing. Consider symptom-guided anti-ischemic and preventive pharmacotherapy as well as risk factor modification per published guideline statements. CAD RADS 4A: Consider further functional testing or invasive coronary angiography with revascularization per published guideline statements. Consider symptom-guided anti-ischemic and preventive pharmacotherapy as well as risk factor modification per published guideline statements. CAD RADS 4B: Invasive coronary angiography recommended with revascularization per published guideline statements. Consider symptom-guided anti-ischemic and preventive pharmacotherapy as well as risk factor modification per published guideline statements. CAD RADS 5: Consider invasive angiography and/or viability assessment with revascularization per published guideline statements. Consider symptom-guided anti-ischemic and preventive pharmacotherapy as well as risk factor modification per published guideline statements. CRITICAL RESULT None COMMUNICATION Per this written report The coronary and cardiac findings of this CCTA were reviewed, reported, and signed by Jemal Nunez MD ([employer]) Conclusion Electronically signed by : Sona Nunez MD 12/21/2024 15:35:00
--- NOTE | 2024-12-21 11:33 | P.CONCA_ITS ---
History of Present Illness History of Present Illness Consult date: 12/21/24 Requesting physician: Guillermo Oswald Consult reason: chest pain Chief complaint: chest/abdominal pain History of present illness: 64-year-old white male without known cardiovascular disease, non-smoker nondiabetic who presented to [facility] emergency room with complaints of severe epigastric pain and elevated blood pressure 170s. Patient states symptoms began approximately 1 hour after eating a heavy meal at [facility] including steak and potatoes. In the emergency room in [facility] he had significant ischemic changes including deep T wave inversions leads V2 and V3. Initial troponin was normal but patient was transferred for ACS rule out. On evaluation here serial troponins are normal x 3. He reports resolution of symptoms. He thinks symptoms improved after nitroglycerin at the other ER but is unclear if he also received GI cocktail or morphine there. CT abdomen here shows obstructing gallstone of 2.5 cm with moderate gallbladder distention. Pt states he had been previously made aware of a gallstone but it had not historically been problematic. He was evaluated by general surgery this morning who deferred intervention until CV evaluation is complete. Patient is not septic and has only very mild tenderness on abdominal palpation. [facility] Disclaimer: The information contained in this section may have been updated after the patient was seen, as this information can be updated by other users. Medical History Hypertension Social History Smoking Status: Never smoker alcohol intake: never current occupational status: employed Travel in the last 8 weeks?: None Have you lived/traveled outside US in past 30 days?: No Contact w/someone who lives/traveled outside US past 30 days?: No Exposure to someone with infectious disease in past 14 days?: No Do you have a fever (greater than 100.4 F or 38 C)?: No Have you tested positive for COVID-19?: No Exposed to someone with COVID-19 in past 14 days?: No Do you have a sore throat?: No Do you have a cough?: No Do you have any weakness?: No Do you have any diarrhea?: No Are you experiencing any unusual bleeding?: No Do you have any muscle aches/pain?: No Do you have any abdominal pain?: No Are you experiencing loss of taste or smell?: No Review of Systems Constitutional Constitutional: Denies fatigue and Denies weakness Eyes Eyes: Denies loss of vision ENT Ears, Nose, Mouth, and Throat: Denies hearing loss *Cardiovascular Cardiovascular: Denies chest pain and Denies dyspnea *Respiratory Respiratory: Denies cough and Denies dyspnea *Gastrointestinal Gastrointestinal: Reports abdominal pain, Denies change in stool character, Denies nausea and Denies vomiting *Genitourinary Genitourinary: Denies difficulty urinating *Musculoskeletal Musculoskeletal: Denies muscle weakness Integumentary/Breasts Skin/Breast: Denies changing lesions *Neurologic Neurologic: Reports as per HPI, Denies loss of vision and Denies weakness Endocrine Endocrine: Denies fatigue Exam Data for Last 24 hours Vital signs and Labs for Last 24 Hours: Temp Pulse Resp BP Pulse Ox O2 Del Method O2 Flow Rate 97.8 F 66 18 141/75 H 97 Room Air 6 12/21/24 07:58 12/21/24 08:00 12/21/24 07:58 12/21/24 07:58 12/21/24 07:58 12/21/24 08:14 12/20/24 04:10 Laboratory Results - last 24 hr 12/21/24 05:50: WBC 12.3 H, RBC 5.10, Hgb 15.4, Hct 43.4, MCV 85.1, MCH 30.2, MCHC 35.5 H, RDW 14.0, Plt Count 245, MPV 11.9 H, Neut % (Auto) 69.3, Lymph % (Auto) 15.7, [place] % (Auto) 12.3 H, Eos % (Auto) 1.6, Baso % (Auto) 0.3, Neut # (Auto) 8.5 H, Lymph # (Auto) 1.9, [place] # (Auto) 1.5 H, Eos # (Auto) 0.2, Baso # (Auto) 0.0, Sodium 136, Potassium 3.9, Chloride 105, Carbon Dioxide 23, Anion Gap 11.9, BUN 14, Creatinine 1.10 D, Estimated Creat Clear 95, Estimated GFR 67, Est GFR ( Amer) 81 D, Glucose 106 H, Calcium 8.7, Magnesium 1.9 D, Total Bilirubin 1.5 H, AST 44, ALT 50 D, Alkaline Phosphatase 55, Total Protein 6.9, Albumin 3.9, Globulin 3.0, Albumin/Globulin Ratio 1.3, Triglycerides 72, Cholesterol 144, LDL Cholesterol Direct 84.91 L, VLDL Cholesterol 14, HDL Cholesterol 36 L, Cholesterol/HDL Ratio 4.0 H I & O for Last 24 hours: Intake & Output 12/18/24 12/19/24 12/20/24 12/21/24 23:59 23:59 23:59 23:59 Intake Total 8.925 / 8.925 825.1 / 825.1 50 / 50 Output Total 400 / 400 300 / 300 Balance 8.925 / 8.925 425.1 / 425.1 -250 / -250 Weight 232 lb 5.875 oz 232 lb 5.875 oz 230 lb Meds Home Medications and Allergies Home Medications ?Medication ?Instructions ?Recorded ?Confirmed ?Type Lactobacillus rhamnosus-Bifidobac. 1 cap PO DAILY 05/1512/20/24 History animalis 3 billion cell capsule ([employer]) dicyclomine 20 mg tablet 20 mg PO DAILY 12/20/2405/15 History losartan 50 mg tablet 50 mg PO DAILY 12/20/2405/15 History multivit,stress formula-zinc tablet 1 tab PO DAILY 05/1512/20/24 History pantoprazole 40 mg tablet,delayed 40 mg PO HS 12/20/24 12/20/24 History release New Prescriptions to Start Prescriptions: Allergies Allergy/AdvReac Type Severity Reaction Status Date / Time No Known Allergies Allergy Verified 12/19/24 21:57 Assessment and Plan *Assessment and plan (1) T wave inversion in EKG: Status: Acute Category: Medical Code(s): R94.31 - Abnormal electrocardiogram [ECG] [EKG] (2) Elevated blood pressure reading: Status: Acute Category: Medical Code(s): R03.0 - Elevated blood-pressure reading, without diagnosis of hypertension (3) Calculous cholecystitis: Status: Acute Qualifiers: Biliary obstruction: without biliary obstruction Cholecystitis acuity: unspecified acuity Qualified Code(s): K80.10 - Calculus of gallbladder with chronic cholecystitis without obstruction Category: Medical Code(s): K80.10 - Calculus of gallbladder with chronic cholecystitis without obstruction Plan Abnormal EKG - new dx this admission - RBBB with t-wave inversions leads V2 and V3 - normal serial troponin - symptoms more consistent with his obstructing gallstone - discussed with juni that ACS ruled out but cannot exclude significant underlying coronary disease. Given that he is awaiting abdominal surgery will proceed with inpatient CCTA and 2D echo as minimally invasive option. Patient said he is agreeable to left heart cath should it be warranted this admission. - cont Lovenox and Irbesartan. Further med adjustments pending test results. Calculus cholecystitis - Patient does not appear septic - Plans per general surgery Elevated blood pressure - Typically well-controlled 130s at home per patient - Acutely elevated in the setting of stress and pain - Continue irbesartan, will follow outpatient. CV stable, further plans pending test results. ADDENDUM: - 2D echo shows normal BiV function, no wall motion abnormality - Prelim verbal for CCTA shows calcium score equals 0, no obstructive lesions, patient is CV stable for gallbladder surgery if needed and can DC home from our standpoint. He should follow-up in our office in 2 weeks.
[2024-12-21] MEDS: NITROGLYCERIN 0.4MG SL TABLET 0.8 MG SL (13:42)
--- NOTE | 2024-12-21 13:56 | PC.NURSE ---
PT DID NOT REQUIRE ANY CARDIAC MEDS FOR HR. PT WAS ADMINISTERED 0.8 MG NITRO SL PRIOR TO SCAN FOR BP 149/78. AFTER NITRO BP 130/68. DURING SCAN 115/58. AFTER SCAN 127/72.
[2024-12-21] MEDS: 0.9 % SODIUM CHLORIDE 50 ML VIAL IV (13:57)
[2024-12-21] MEDS: SODIUM CHLORIDE 0.9% 10ML SYR (RAD ONLY) 10 ML IV (13:57)
[2024-12-21] MEDS: IOPAMIDOL-370 (76%);100ML BOTTLE 85 ML IV (13:57)
--- NOTE | 2024-12-21 16:33 | EXP.DC.SUM ---
General Admission date:: 12/19/24 Discharge date: 12/21/24 HPI HPI HPI: This is a 64-year-old gentleman seen in consultation from the primary service for evaluation regarding possible gallbladder disease. His initial presenting symptoms are forwarded below as part of the emergency department evaluation/admission H&P. Currently he feels much better . No fevers. No jaundice. Part of the patient's initial evaluation included a CT scan of the abdomen pelvis that revealed a moderately distended gallbladder with moderate wall thickening and a 2.3 cm calculus at the gallbladder neck. Forwarded from emergency department evaluation/admission H&P: Received a phone call from [facility] emergency room physician about Alex De La Torre. The doctor for me of the patient that was having atypical chest pain and that he had contacted Dr. Liu about this. That the patient had an unusual EKG showing Wellens sign. The patient had had an upper gastric discomfort but no crushing chest pain for about 3 days tonight the convinced him to go to the ER. For this unusual EKG was found. While at [facility] the patient received aspirin Lovenox and started on a nitroglycerin drip. Patient was then transported for direct admission to [facility] and placed in the stepdown unit to wait probable catheterization in the a.m. Talking with the patient and his he really does not have much medical history at all no medications from a provider he noted that his family does not have a lot of cardiac disease. That his mother is still alive in her 90s and that her father did not until he was in his 90s. The patient is a non-smoker of average weight and basically states he does not go to the physician. On arrival second EKG done being T wave inversions with no t wave elevation from V3 through V6. V1 and 2 show some T wave elevation before inversion. There was no ST elevation in any of the leads. Serial troponins ordered labs ordered for the a.m. Hospital Course Hospital Course Hospital Course: 64-year-old male who presented with chest pain that began 2 days prior to presenting to the ER. Presented to [facility]. Due to abnormal EKG, cardiology was consulted and recommended transfer. Patient accepted to [facility] by medicine after discussion with ER physician at [facility]. Monitored on telemetry overnight. Serial troponins less than 0.02. Continue to have mild epigastric pain but no otilia chest pain. Findings ultimately most consistent with cholelithiasis/cholecystitis as opposed to angina. Was evaluated by both cardiology and surgery. CCTA obtained showing calcium score equal to 0. Optimized for surgical evaluation. Plan to follow-up in a few days as an outpatient for cholecystectomy. Stable to discharge home. Problems addressed as follows: Angina T wave inversions Hypertension - Unclear etiology at at time of admission. EKG clearly showed T wave inversions. After further conversations with patient and , this is not uncommon for him. Serial troponins less than 0.02. Cardiology was consulted and evaluated patient. Initiated on blood pressure medication during admission. Resume patient's losartan 50 mg daily at discharge. Echo obtained showing preserved ejection fraction. Normal BiV function. Preliminary results on CCTA showed calcium score equal to 0 with no obstructive lesions. Stable for surgery. No plan for intervention at this time. Follow-up with cardiology as an outpatient in 2 weeks. Abdominal pain Calculous cholecystitis - Patient does mention component of his pain that began yesterday after eating at [employer]. Obtained CT of abdomen that shows moderately distended gallbladder with wall thickening and stone obstructing per my review. Stone measures a little over 2 cm at the gallbladder neck. Liver enzymes normal with bilirubin 0.8, AST 43, ALT 30, alk phos 62. Lipase 50. Surgery was consulted and evaluated patient. Right upper quadrant obtained showing gallbladder distention with 2.3 mm stone at the gallbladder neck. Remained relatively asymptomatic with mild pain that waxed and waned. Given his clinical stability and cardiac optimization as above, will discharge home and have patient follow-up as an outpatient later this week for elective cholecystectomy. Discharged on short course of opiate pain medication for severe breakthrough pain. 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 Total time spent on discharge 32 minutes in counseling, documentation, chart review, and direct care with patient. Exam Data for Last 24 hours Vital signs and Labs for Last 24 Hours: Temp Pulse Resp BP Pulse Ox O2 Del Method O2 Flow Rate 98 F 56 L 19 134/73 96 Room Air 6 12/21/24 16:00 12/21/24 16:00 12/21/24 16:00 12/21/24 16:00 12/21/24 16:00 12/21/24 16:00 12/20/24 04:10 Laboratory Results - last 24 hr 12/21/24 05:50: WBC 12.3 H, RBC 5.10, Hgb 15.4, Hct 43.4, MCV 85.1, MCH 30.2, MCHC 35.5 H, RDW 14.0, Plt Count 245, MPV 11.9 H, Neut % (Auto) 69.3, Lymph % (Auto) 15.7, [place] % (Auto) 12.3 H, Eos % (Auto) 1.6, Baso % (Auto) 0.3, Neut # (Auto) 8.5 H, Lymph # (Auto) 1.9, [place] # (Auto) 1.5 H, Eos # (Auto) 0.2, Baso # (Auto) 0.0, Sodium 136, Potassium 3.9, Chloride 105, Carbon Dioxide 23, Anion Gap 11.9, BUN 14, Creatinine 1.10 D, Estimated Creat Clear 95, Estimated GFR 67, Est GFR ( Amer) 81 D, Glucose 106 H, Calcium 8.7, Magnesium 1.9 D, Total Bilirubin 1.5 H, AST 44, ALT 50 D, Alkaline Phosphatase 55, Total Protein 6.9, Albumin 3.9, Globulin 3.0, Albumin/Globulin Ratio 1.3, Triglycerides 72, Cholesterol 144, LDL Cholesterol Direct 84.91 L, VLDL Cholesterol 14, HDL Cholesterol 36 L, Cholesterol/HDL Ratio 4.0 H I & O for Last 24 hours: Intake & Output 12/18/24 12/19/24 12/20/24 12/21/24 23:59 23:59 23:59 23:59 Intake Total 8.925 / 8.925 825.1 / 825.1 100 / 100 Output Total 400 / 400 300 / 300 Balance 8.925 / 8.925 425.1 / 425.1 -200 / -200 Weight 105.4 kg 105.4 kg 104.326 kg Constitutional Constitutional: no acute distress, average body habitus and cooperative *Routine HEENT Exam Head: Present normocephalic Eye: Present EOMI and PERRL ENT: Present mucous membranes moist *Routine Neck Exam Neck: Present supple; Absent lymphadenopathy *Routine Respiratory Exam Respiratory: Present CTA bilaterally; Absent rhonchi, wheezes or crackles *Routine Cardiovascular Exam Cardiovascular: Present RRR *Routine Abdominal Exam Abdominal: Present soft, normoactive bowel sounds and tenderness (Mild upper quadrant with deep palpation); Absent distended or rebound *Routine Rectal Exam Patient deferred: visual exam *Routine Exam Patient deferred: penile exam *Routine Extremities Exam Extremities: Absent cyanosis, clubbing or edema *Routine Skin Exam Skin: Present intact and warm; Absent rash *Routine Neurological Exam Neurological: Present alert, oriented X3 and moving all extremities; Absent altered mental status Results Data Completed and Pending Labs on day of discharge: Labs from last 24 hours 12/21/24 05:50 WBC 12.3 H RBC 5.10 Hgb 15.4 Hct 43.4 MCV 85.1 MCH 30.2 MCHC 35.5 H RDW 14.0 Plt Count 245 MPV 11.9 H Neut % (Auto) 69.3 Lymph % (Auto) 15.7 [place] % (Auto) 12.3 H Eos % (Auto) 1.6 Baso % (Auto) 0.3 Neut # (Auto) 8.5 H Lymph # (Auto) 1.9 [place] # (Auto) 1.5 H Eos # (Auto) 0.2 Baso # (Auto) 0.0 Sodium 136 Potassium 3.9 Chloride 105 Carbon Dioxide 23 Anion Gap 11.9 BUN 14 Creatinine 1.10 D Estimated Creat Clear 95 Estimated GFR 67 Est GFR ( Amer) 81 D Glucose 106 H Calcium 8.7 Magnesium 1.9 D Total Bilirubin 1.5 H AST 44 ALT 50 D Alkaline Phosphatase 55 Total Protein 6.9 Albumin 3.9 Globulin 3.0 Albumin/Globulin Ratio 1.3 Triglycerides 72 Cholesterol 144 LDL Cholesterol Direct 84.91 L VLDL Cholesterol 14 HDL Cholesterol 36 L Cholesterol/HDL Ratio 4.0 H DS: Diagnosis Discharge Diagnosis (1) T wave inversion in EKG: Status: Acute Code(s): R94.31 - Abnormal electrocardiogram [ECG] [EKG] (2) Elevated blood pressure reading: Status: Acute Code(s): R03.0 - Elevated blood-pressure reading, without diagnosis of hypertension (3) Calculous cholecystitis: Status: Deleted Code(s): K80.10 - Calculus of gallbladder with chronic cholecystitis without obstruction Qualifiers: Biliary obstruction: without biliary obstruction Cholecystitis acuity: unspecified acuity Qualified Code(s): K80.10 - Calculus of gallbladder with chronic cholecystitis without obstruction Meds Home Medications and Allergies Home Medications ?Medication ?Instructions ?Recorded ?Confirmed ?Type Lactobacillus rhamnosus-Bifidobac. 1 cap PO DAILY 12/20/24 12/23/24 History animalis 3 billion cell capsule ([employer]) dicyclomine 20 mg tablet 20 mg PO DAILY 12/20/24 12/23/24 History losartan 50 mg tablet 50 mg PO DAILY 12/20/24 12/23/24 History multivit,stress formula-zinc tablet 1 tab PO DAILY 12/20/24 12/23/24 History pantoprazole 40 mg tablet,delayed 40 mg PO HS 12/20/24 12/23/24 History release hydrocodone 5 mg-acetaminophen 325 1 tab PO Q6H PRN post-op pain #17 12/23/24 Rx mg tablet tabs New Prescriptions to Start Prescriptions: Allergies Allergy/AdvReac Type Severity Reaction Status Date / Time No Known Allergies Allergy Verified 12/19/24 21:57 Discharge Plan Disposition Patient Disposition: Home, Self-Care Condition: Fair Follow up Plan Follow up with: Denny Harmon PA [Physician Dye Line Operator, Cardiology] - 2 weeks Ifeanyi Grewal [Primary Care Provider, Medical] - 12/27/24 1:30 pm Lawrence Hu MD [Staff Physician, General Surgery] - 2 days Prescriptions/Medication Reconciliation: Continued losartan 50 mg tablet 50 mg PO DAILY Patient Comments: TAKE 1 TABLET BY MOUTH EVERY DAY TO IMPROVE BLOOD PRESSURE pantoprazole 40 mg tablet,delayed release (DR/EC) 40 mg PO HS Patient Comments: TAKE 1 TABLET BY MOUTH EVERY DAY dicyclomine 20 mg Tablet 20 mg PO DAILY multivit,stress formula-zinc Tablet 1 tab PO DAILY [employer] 3 billion cell Capsule 1 cap PO DAILY No Action hydrocodone-acetaminophen 5-325 mg tablet 1 tab PO Q6H PRN (Reason: post-op pain) Qty: 17 0RF Problem Reconciliation Problems Reviewed?: Yes Patient Discharge Instructions ACTIVITY: Continue current activity DIET: continue same diet and low fat, low cholesterol Patient Instructions: Eating a Diet Low in Saturated Fat, Trans Fat, and Cholesterol, DI for Chest Pain Print Language: Syriac Providers Primary Care Provider: Ifeanyi Grewal Admit Provider: Erasmo Noriega Attending Provider: Erasmo Noriega
--- NOTE | 2024-12-24 10:58 | SW/DCPLANNER ---
Patient was admitted to our hospital yesterday and had surgery. When patient is discharged i will do a follow up phone call then. Janice Stroud
== END 2024-12-21 16:52 | disposition home or self-care (01) ==
LOC: ICU 12-20 09:30 → 2ND 12-20 11:26
PROVIDERS: Internal Medicine Adolescent Medicine; Nurse Practitioner Family; Admitting Provider Student in an Organized Health Care Education/Training Program; PCP Family Medicine; Visit Provider Student in an Organized Health Care Education/Training Program
DX: I20.9 Angina pectoris, unspecified (principal); R00.1 Bradycardia, unspecified; I10 Essential (primary) hypertension; R79.89 Other specified abnormal findings of blood chemistry; K80.10 Calculus of gallbladder with chronic cholecystitis without obstruction; I45.10 Unspecified right bundle-branch block; E80.6 Other disorders of bilirubin metabolism; R91.1 Solitary pulmonary nodule; N28.1 Cyst of kidney, acquired; Z79.899 Other long term (current) drug therapy
CPT/HCPCS: 96365; 96366; 96367; 96372; 96376; 36415; 71045; 74177; 75574; 76705; 80048; 80053; 80061; 82962; 83690; 83735; 84484; 85025; 93005; 93306; G0378; J1450; J1650; J2543; J3475; Q9967

== ENCOUNTER 2024-12-23 11:58 | Inpatient (IN) | payer MEDICARE, OTHER, SELFPAY ==
[2024-12-23] VITALS (15 sets, daily range): BP systolic 108–145; BP diastolic 44–95; PULSE 48–57; RESP 14–18; TEMP 36.4–36.8; O2SAT 93–98; BMI 29.7; BMI 28.9
[2024-12-23] MEDS: 0.9 % SODIUM CHLORIDE 1000ML 1,000 ML 25 ML IV (08:22)
--- NOTE | 2024-12-23 08:49 | P.OP_ITS ---
Date of procedure: 12/23/24 Pre-op Diagnosis:: Acute calculous cholecystitis Post-op Diagnosis:: Same Procedure performed:: Laparoscopic cholecystectomy Surgeon:: Lawrence Hu MD Anesthesia: GETA Estimated blood loss (mL): 15 Operative findings:: Profound pericholecystic fat stranding Severe gallbladder distention with purulent hydrops Severe inflammatory changes and thickening in/around infundibular region Inability to identify the cystic duct with certainty secondary to profound infl ammatory changes, surrounding necrosis, and purulence Maycol-Moraes drains (x 2) placed in gallbladder fossa secondary to above findings Operative note:: After informed consent was obtained, the patient was taken to the operating room and placed in the supine position. General anesthesia was induced and the abdomen was prepped and draped in a sterile fashion. After infiltration with local anesthetic an supraumbilical incision was made. A Veress needle was placed in position. The abdomen was insufflated. A 5 mm optical trocar was placed in position. Under direct visualization, a 12 mm trocar was placed in the subxiphoid position and 2 additional 5 mm trocars were placed in the right upper quadrant. The gallbladder was severely enlarged and profound pericholecystic fat stranding noted. Careful blunt dissection was utilized to free adhered omentum, small bowel/stomach, and colon from the anterior wall of the gallbladder. An otomy was made at the dome of the gallbladder. Purulent hydrops was evacuated. Dissection continued in/around the infundibular region that was profoundly inflamed/thickened. No definitive cystic duct was identified is careful dissection continued cephalad. More proximal than expected on the gallbladder and area of increased inflammatory response and possible cystic duct was controlled via clips followed by harmonic shear dissection. Harmonic christine were then utilized to dissect the remainder of the gallbladder away from the liver margin. The gallbladder was placed in a retrieval bag and removed through the subxiphoid trocar site. The right upper quadrant was thoroughly irrigated. No active bleeding or bile leak was noted. #10 flat Maycol-Moraes drains (x 2) were placed in the gallbladder fossa and exited through the right upper quadrant trocar sites. The drains were secured with interrupted nylon suture. Fascia at the subxiphoid trocar site was reapproximated utilizing 0 Ethibond. The remaining trocar was removed. All wounds were irrigated and skin was closed with 4-0 Monocryl in a subcuticular fashion. Steri-Strips were applied. The patient's anesthetic agents were reversed and extubation was completed prior to transfer to recovery in stable condition. Condition: stable Disposition: PACU Specimens:: Gallbladder Complications:: No immediate
[2024-12-23] MEDS: LIDOCAINE 1% 20ML MDV 20 ML (09:16)
--- NOTE | 2024-12-23 11:09 | EXP.ANES.CKL ---
[facility] Disclaimer: The information contained in this section may have been updated after the patient was seen, as this information can be updated by other users. Medical History Hypertension Surgical History (Updated 12/23/24 @ 08:24 by Erasmo Wan RN) No history of previous surgery Family History (Updated 12/23/24 @ 08:24 by Erasmo Wan RN) Other Family history of Crohn's disease Social History (Updated 12/23/24 @ 08:25 by Erasmo Wan RN) Smoking Status: Never smoker alcohol intake: never substance use type: denies use current occupational status: retired Travel in the last 8 weeks?: None [facility] Anesthesia Checklist Patient Identification Patient Identification: Arm Band and Family Structural Data Admitted From: Home Planned Operative Procedure/s: Lap [place] Consent for Planned Operative Procedure(s) Verified: Yes Verified Documents: Surgical Consent, History and Physical and Cardiac Clearance NPO Status Verified Time NPO: 00:00 Additional verifications Patient : No Anesthesia Reactions: No Hx Blood Transfusions: No Blood Transfusion Reaction: No Cephalosporin Allergy: No Previous Colonoscopy: Yes Airway Assessment Mallampati Score:: Class II C-Spine Mobility Assessed: Yes TMJ Mobility Assessed: Yes Dentition: Good Dentition Neurological Assessment Level of Consciousness: Awake, Alert, Appropriate and Follows Commands Hx Seizures: No Numbness or tingling in extremities: No Anesthesia Plan Anesthesia Risk discussed: Yes ASA Class: II Anesthesia Type: General Preoperative Comments Pre-Operative Comments: History of transient episodes of bradycardy.
--- NOTE | 2024-12-23 11:12 | P.PNANES_ITS ---
[facility] Anesthesia Record Part I Anesthesia Record I Intake, IV Amount: 1,200 Hydration: Adequate Estimated blood loss (mL): 20 Urine output (mL): 0 Blood Products used (#): none Blood Pressure: 109/59 SaO2: 94 Pulse Rate: 50 Airway Patency: Patent Respiratory Rate: 14 Temperature: 98.1 F Patient is:: Drowsy and Stable Stable to PACU at:: 11:00
[2024-12-23] MEDS: HYDROCODONE/APAP 5/325 MG TABLET 1 TAB PO (12:32)
--- NOTE | 2024-12-23 12:38 | EXP.GEN.HP ---
HPI HPI HPI: This is a 64-year-old gentleman recently diagnosed with acute calculous cholecystitis. He underwent laparoscopic cholecystectomy on the morning of December 23, 2024. Intraoperative findings included profound inflammatory changes and inability to identify the cystic duct with certainty. Maycol-Moraes drains were placed and the gastroenterology service was consulted for possible ERCP. [facility] Disclaimer: The information contained in this section may have been updated after the patient was seen, as this information can be updated by other users. Medical History (Updated 12/23/24 @ 12:40 by Lawrence Hu MD) Hypertension Surgical History No history of previous surgery Family History Family history of Crohn's disease Social History Smoking Status: Never smoker alcohol intake: never substance use type: denies use current occupational status: retired Travel in the last 8 weeks?: None Have you lived/traveled outside US in past 30 days?: No Contact w/someone who lives/traveled outside US past 30 days?: No Exposure to someone with infectious disease in past 14 days?: No Do you have a fever (greater than 100.4 F or 38 C)?: No Have you tested positive for COVID-19?: No Exposed to someone with COVID-19 in past 14 days?: No Do you have a sore throat?: No Do you have a cough?: No Do you have any weakness?: No Are you experiencing any nausea/vomitting?: No Do you have any diarrhea?: No Are you experiencing any unusual bleeding?: No Do you have any muscle aches/pain?: No Do you have any abdominal pain?: No Are you experiencing loss of taste or smell?: No Other Medical History Have you received the Flu Vaccine for this season: No Have you received the Pneumonia Vaccine: No Review of Systems Review of Systems Review of systems:: pertinent systems reviewed and negative unless documented below Constitutional Constitutional: Reports system reviewed and no additional complaints, except as documented Eyes Eyes: Reports system reviewed and no additional complaints, except as documented ENT Ears, Nose, Mouth, and Throat: Reports system reviewed and no additional complaints, except as documented *Cardiovascular Cardiovascular: Reports system reviewed and no additional complaints, except as documented *Respiratory Respiratory: Reports system reviewed and no additional complaints, except as documented *Gastrointestinal Gastrointestinal: Reports abdominal pain *Genitourinary Genitourinary: Reports system reviewed and no additional complaints, except as documented *Musculoskeletal Musculoskeletal: Reports system reviewed and no additional complaints, except as documented Integumentary/Breasts Skin/Breast: Reports system reviewed and no additional complaints, except as documented *Neurologic Neurologic: Reports system reviewed and no additional complaints, except as documented Psychiatric Psychiatric: Reports system reviewed and no additional complaints, except as documented Endocrine Endocrine: Reports system reviewed and no additional complaints, except as documented Hematologic/Lymphatic Hematologic/Lymphatic: Reports system reviewed and no additional complaints, except as documented Allergic/Immunologic Allergic/Immunologic: Reports system reviewed and no additional complaints, except as documented Meds Home Medications and Allergies Home Medications ?Medication ?Instructions ?Recorded ?Confirmed ?Type Lactobacillus rhamnosus-Bifidobac. 1 cap PO DAILY 12/20/24 12/23/24 History animalis 3 billion cell capsule ([facility]) dicyclomine 20 mg tablet 20 mg PO DAILY 12/20/24 12/23/24 History losartan 50 mg tablet 50 mg PO DAILY 12/20/24 12/23/24 History multivit,stress formula-zinc tablet 1 tab PO DAILY 12/20/24 12/23/24 History pantoprazole 40 mg tablet,delayed 40 mg PO HS 12/20/24 12/23/24 History release hydrocodone 5 mg-acetaminophen 325 1 tab PO Q6H PRN post-op pain #17 12/23/24 Rx mg tablet tabs New Prescriptions to Start Prescriptions: hydrocodone-acetaminophen Lawrence Hu Allergies Allergy/AdvReac Type Severity Reaction Status Date / Time No Known Allergies Allergy Verified 12/19/24 21:57 Exam Data for Last 24 hours Vital signs and Labs for Last 24 Hours: Temp Pulse Resp BP Pulse Ox O2 Del Method 98.0 F 48 L 16 126/71 96 Room Air 12/23/24 11:30 12/23/24 11:30 12/23/24 11:30 12/23/24 11:30 12/23/24 11:30 12/23/24 11:30 I & O for Last 24 hours: Intake & Output 12/21/24 12/22/24 12/23/24 12/24/24 11:59 11:59 11:59 11:59 Intake Total 1300 / 1300 Balance 1300 / 1300 Weight 232 lb Constitutional Constitutional: no acute distress *Routine HEENT Exam Head: Present normocephalic Eye: Present EOMI ENT: Present mucous membranes moist *Routine Neck Exam Neck: Present full ROM *Routine Respiratory Exam Respiratory: Absent respiratory distress *Routine Cardiovascular Exam Cardiovascular: Absent tachycardia *Routine Abdominal Exam Abdominal: Present soft *Routine Rectal Exam Rectal:: deferred *Routine Genitalia Exam Genitalia:: deferred *Routine Extremities Exam Extremities: Present full ROM *Routine Skin Exam Skin: Absent erythema *Routine Neurological Exam Neurological: Present alert Assessment and Plan *Assessment and plan (1) Acute calculous cholecystitis: Status: Acute Category: Medical Code(s): K80.00 - Calculus of gallbladder with acute cholecystitis without obstruction Plan: Now status post laparoscopic cholecystectomy. Intraoperative findings noted. Gastroenterology consultation pending NPO after midnight for possible ERCP tomorrow Continue antibiotics Continue home medications
[2024-12-23] MEDS: 0.9 % SODIUM CHLORIDE 1000ML 1,000 ML 125 ML IV ×2 (12:50→20:51)
[2024-12-23] MEDS: PIPERACILLIN/TAZO 4.5 GM in 0.9 % SODIUM CHLORIDE 100 ML IV ×3 (13:40→23:57)
[2024-12-23] MEDS: MORPHINE 2MG/ML SYRINGE 1 MG IV ×2 (13:44→20:00)
--- NOTE | 2024-12-23 14:08 | EXP.GE.CONS ---
History of Present Illness *Admission Date: 12/23/24 *Reason for visit:: Complicated gallbladder with difficult surgery *History of present illness: Mr. De La Torre is a 64-year-old gentleman recently diagnosed with acute calculous cholecystitis. He underwent laparoscopic cholecystectomy on the morning of December 23, 2024. Intraoperative findings included profound inflammatory changes and inability to identify the cystic duct with certainty. Maycol-Moraes drains were placed and the gastroenterology service was consulted for possible ERCP. the patient does state that he was diagnosed with gallstones a couple of years ago. He was asymptomatic and was thus not referred to surgery for cholecystectomy. The patient did have the acute and abrupt onset of epigastric and right upper quadrant abdominal pain on Friday evening and went to the ED at [facility]. He had some EKG changes and was transferred to [facility]. He had normal troponins. Additional evaluation on 12/21/2024 showed stone and sludge in the gallbladder with a distended gallbladder. The patient did have cardiac catheterization which showed the absence of coronary calcification and some nonflow limiting 20 to 25% luminal stenosis of the RCA. His dyspeptic findings were related to biliary colic and cholecystitis. He was referred to Lawrence Hu M.D. who did gallbladder surgery today. The patient's liver and pancreatic chemistries are in normal. [facility] Disclaimer: The information contained in this section may have been updated after the patient was seen, as this information can be updated by other users. Medical History (Updated 12/23/24 @ 12:40 by Lawrence Hu MD) Hypertension Surgical History No history of previous surgery Family History Other Family history of Crohn's disease Social History Smoking Status: Never smoker alcohol intake: never substance use type: denies use current occupational status: retired Travel in the last 8 weeks?: None Have you lived/traveled outside US in past 30 days?: No Contact w/someone who lives/traveled outside US past 30 days?: No Exposure to someone with infectious disease in past 14 days?: No Do you have a fever (greater than 100.4 F or 38 C)?: No Have you tested positive for COVID-19?: No Exposed to someone with COVID-19 in past 14 days?: No Do you have a sore throat?: No Do you have a cough?: No Do you have any weakness?: No Are you experiencing any nausea/vomitting?: No Do you have any diarrhea?: No Are you experiencing any unusual bleeding?: No Do you have any muscle aches/pain?: No Do you have any abdominal pain?: No Are you experiencing loss of taste or smell?: No Review of Systems *Neurologic Neurologic: Reports system reviewed and no additional complaints, except as documented Meds Home Medications and Allergies Home Medications ?Medication ?Instructions ?Recorded ?Confirmed ?Type Lactobacillus rhamnosus-Bifidobac. 1 cap PO DAILY 12/20/24 12/23/24 History animalis 3 billion cell capsule ([facility]) dicyclomine 20 mg tablet 20 mg PO DAILY 12/20/24 12/23/24 History losartan 50 mg tablet 50 mg PO DAILY 12/20/24 12/23/24 History multivit,stress formula-zinc tablet 1 tab PO DAILY 12/20/24 12/23/24 History pantoprazole 40 mg tablet,delayed 40 mg PO HS 12/20/24 12/23/24 History release hydrocodone 5 mg-acetaminophen 325 1 tab PO Q6H PRN post-op pain #17 12/23/24 Rx mg tablet tabs New Prescriptions to Start Prescriptions: hydrocodone-acetaminophen Lawrence Hu Allergies Allergy/AdvReac Type Severity Reaction Status Date / Time No Known Allergies Allergy Verified 12/19/24 21:57 Exam (Inpt) Vital signs and Labs for Last 24 Hours: Temp Pulse Resp BP Pulse Ox O2 Del Method 97.7 F 50 L 18 138/75 97 Room Air 12/23/24 12:35 12/23/24 13:20 12/23/24 13:20 12/23/24 13:20 12/23/24 13:20 12/23/24 13:20 I & O for Labs for Last 24 Hours: Intake & Output 12/20/24 12/21/24 12/22/24 12/23/24 23:59 23:59 23:59 23:59 Intake Total 1300 / 1300 Balance 1300 / 1300 Weight 232 lb Comments:: Trocar sites identified with moderate tenderness and mild distention Assessment and Plan *Assessment and plan (1) Acute calculous cholecystitis: Status: Acute Category: Medical Code(s): K80.00 - Calculus of gallbladder with acute cholecystitis without obstruction Plan 1. Acute calculous cholecystitis with operative findings of severe inflammatory change purulent hydrops and thickening in the infundibular region. The cystic duct could not be identified and there was some surrounding necrosis. There is concern for possible open cystic duct stump with leak but also will need to clear biliary system to ensure that there is no bile duct injury. Will plan ERCP tomorrow and I have discussed the case with Lawrence Hu M.D./general surgery and family.
--- NOTE | 2024-12-23 17:27 | PC.NURSE ---
Pt is A&Ox4. Vital signs stable tolerating room air. Pt post lap abdirashid. 4 lap sites on abdomen c/d/i. Pt has 2 right sided SNEHA drains with small sanguineous output. Pt complains of abdominal pain. PRN pain medication given per JUN. IV fluids and abx infusing per JUN. Pt ambulating around room with stand-by assistance. Pt resting comfortably in bed with no further needs voiced at this time.
[2024-12-23] MEDS: SODIUM CHLORIDE 0.9% 10ML FLUSH SYRINGE 10 ML IV (19:55)
[2024-12-23] MEDS: SODIUM CHLORIDE 0.9% 10ML VIAL 10 ML IV (19:55)
[2024-12-23] MEDS: PANTOPRAZOLE 40MG VIAL 40 MG IV (19:55)
--- NOTE | 2024-12-23 20:13 | PC.NURSE ---
patient c/o abd pain, administered morphine per JUN - dsg c/d/i, 2 SNEHA drains intact and removed 60ml of sanguineous drainage.
[2024-12-24] VITALS (15 sets, daily range): BP systolic 126–158; BP diastolic 61–87; PULSE 48–62; RESP 12–18; TEMP 36.4–36.7; O2SAT 92–98; BMI 28.6
[2024-12-24] MEDS: 0.9 % SODIUM CHLORIDE 1000ML 1,000 ML 125 ML IV (04:48)
[2024-12-24] MEDS: MORPHINE 2MG/ML SYRINGE 1 MG IV (04:49)
[2024-12-24] MEDS: PIPERACILLIN/TAZO 4.5 GM in 0.9 % SODIUM CHLORIDE 100 ML IV ×2 (04:49→13:21)
[2024-12-24 06:17] LABS: Alanine Aminotransferase 49 U/L (12-78); Albumin Level 3.5 g/dl (3.5-5.0); Albumin/Globulin Ratio 1.2 (1.1-1.8); Alkaline Phosphatase 50 U/L (38-126); Anion Gap 11.4 mEq/L (5-15); Aspartate Amino Transferase 58 U/L (17-59); Bilirubin,Total 1.1 mg/dl (0.2-1.3); Blood Urea Nitrogen 15 mg/dl (9-20); Calcium 8.4 mg/dl (8.4-10.2); Carbon Dioxide 24 mmol/L (22.0-30.0); Chloride 108 mmol/L (98-107); Creatinine Clearance Estimated 106 mL/min (50-200); Creatinine,Serum 1.00 mg/dl (0.66-1.25); Estimated Glomerular Filt Rate 75 ml/min (>60); GFR (African American) 91 ML/MIN (>60); Globulin 2.9 g/dL (1.3-3.2); Glucose 113 mg/dl (74-100); Potassium 4.4 mmoL/L (3.5-5.1); Sodium 139 mmol/L (136-145); Total Protein,Serum 6.4 g/dl (6.3-8.2)
[2024-12-24 06:32] LABS: Hematocrit 39.3 % (42.0-52.0); Hemoglobin 13.6 g/dL (14.1-18.0); Immature Granulocytes % 0.6 %; Mean Corpuscular HGB Conc 34.6 g/dL (31.8-35.4); Mean Corpuscular Hemoglobin 30.4 pg (27.0-31.2); Mean Corpuscular Volume 87.7 fl (80-94); Nucleated Red Blood Cells % 0 %; Platelet Count 265 K/mm3 (142-424); Red Blood Count 4.48 M/mm3 (4.60-6.20); Red Cell Distribution Width-SD 46.5 fL; White Blood Count 11.9 K/mm3 (4.8-10.8)
--- NOTE | 2024-12-24 07:12 | P.PN_ITS ---
Subjective Patient reports: no new complaints and feels better Exam Data for Last 24 hours Vital signs and Labs for Last 24 Hours: Temp Pulse Resp BP Pulse Ox O2 Del Method 98.1 F 58 L 14 145/81 H 93 L Room Air 12/24/24 04:00 12/24/24 04:00 12/24/24 04:00 12/24/24 04:00 12/24/24 04:00 12/24/24 06:41 Laboratory Results - last 24 hr 12/24/24 05:54: WBC 11.9 H, RBC 4.48 L, Hgb 13.6 L, Hct 39.3 L, MCV 87.7, MCH 30.4, MCHC 34.6, RDW 14.4, Plt Count 265, MPV 12.6 H, Neut % (Auto) 79.0, Lymph % (Auto) 12.2, [place] % (Auto) 7.9, Eos % (Auto) 0.1, Baso % (Auto) 0.2, Neut # (Auto) 9.4 H, Lymph # (Auto) 1.5, [place] # (Auto) 0.9, Eos # (Auto) 0.0, Baso # (A uto) 0.0, Sodium 139, Potassium 4.4, Chloride 108 H, Carbon Dioxide 24, Anion Gap 11.4, BUN 15, Creatinine 1.00, Estimated Creat Clear 106, Estimated GFR 75, Est GFR ( Amer) 91, Glucose 113 H, Calcium 8.4, Total Bilirubin 1.1, AST 58, ALT 49, Alkaline Phosphatase 50, Total Protein 6.4, Albumin 3.5, Globulin 2.9, Albumin/Globulin Ratio 1.2 I & O for Last 24 hours: Intake & Output 12/21/24 12/22/24 12/23/24 12/24/24 11:59 11:59 11:59 11:59 Intake Total 1300 / 1300 3360 / 3360 Output Total 210 / 210 Balance 1300 / 1300 3150 / 3150 Weight 225 lb 9 oz 223 lb 5.252 oz Constitutional Constitutional: no acute distress *Routine Respiratory Exam Respiratory: Absent respiratory distress *Routine Cardiovascular Exam Cardiovascular: Absent tachycardia *Routine Abdominal Exam Comments: Dressings in place. No spreading cellulitis. Progress Note: A&P Assessment and plan (1) Acute calculous cholecystitis: Status: Acute Assessment and plan: ERCP planned for later today (note intraoperative findings)
--- NOTE | 2024-12-24 10:45 | EXP.ANES.II ---
[facility] Anesthesia Record Part II Anesthesia Record Part II Discharge Time: 11:30 Destination: Medical Surgical Department PACU nurse assessment reviewed?: Yes Patient Condition:: Good Anesthesia Complications:: None Swallowing reflex intact?: Yes Airway Patency: Patent Cyanosis?: No Blood Pressure: 126/71 SaO2: 96 Respiratory Rate: 16 Pulse Rate: 48 Temperature: 98 F Mental Status: Alert & Oriented Pain level:: 0 Nausea and/or vomitting:: None Intake, IV Amount: 0 Hydration: Adequate
--- NOTE | 2024-12-24 11:16 | P.PNANES_ITS ---
[facility] Disclaimer: The information contained in this section may have been updated after the patient was seen, as this information can be updated by other users. Medical History (Updated 12/23/24 @ 12:40 by Lawrence Hu MD) Hypertension Surgical History No history of previous surgery Family History Other Family history of Crohn's disease Social History Smoking Status: Never smoker alcohol intake: never substance use type: denies use current occupational status: retired Travel in the last 8 weeks?: None Have you lived/traveled outside US in past 30 days?: No Contact w/someone who lives/traveled outside US past 30 days?: No Exposure to someone with infectious disease in past 14 days?: No Do you have a fever (greater than 100.4 F or 38 C)?: No Have you tested positive for COVID-19?: No Exposed to someone with COVID-19 in past 14 days?: No Do you have a sore throat?: No Do you have a cough?: No Do you have any weakness?: No Are you experiencing any nausea/vomitting?: No Do you have any diarrhea?: No Are you experiencing any unusual bleeding?: No Do you have any muscle aches/pain?: No Do you have any abdominal pain?: No Are you experiencing loss of taste or smell?: No [facility] Anesthesia Checklist Patient Identification Patient Identification: Arm Band Structural Data Admitted From: Inpatient Planned Operative Procedure/s: ERCP Consent for Planned Operative Procedure(s) Verified: Yes Verified Documents: Surgical Consent and History and Physical NPO Status Verified Time NPO: 00:00 Additional verifications Anesthesia Reactions: No Hx Blood Transfusions: No Blood Transfusion Reaction: No Cephalosporin Allergy: No Airway Assessment Mallampati Score:: Class II C-Spine Mobility Assessed: Yes TMJ Mobility Assessed: Yes Dentition: Good Dentition Neurological Assessment Level of Consciousness: Awake, Alert and Appropriate Anesthesia Plan Anesthesia Risk discussed: Yes Anesthesia Plan: Verified ASA Class: II Anesthesia Type: General
--- NOTE | 2024-12-24 11:47 | P.PCN_ITS ---
[facility] Procedure Note Date: 12/24/24 Time: 12:23 Procedure Note:: ERCP procedure Report: Endoscopic retrograde cholangiography with biliary sphincterotomy Endoscopist: Zaki Roberts II, MD Referring Physician: Lawrence Hu M.D. Date of Procedure: December 24, 2024 Equipment: Olympus 180 side viewing endoscope duodenoscope Sedation: MAC sedation Indication: Mr. De La Torre is a 64-year-old gentleman who is here for diagnostic ERCP. He was recently diagnosed with acute calculous cholecystitis. He underwent laparoscopic cholecystectomy on the morning of December 23, 2024. Intraoperative findings included profound inflammatory changes and inability to identify the cystic duct with certainty. Maycol-Moraes drains were placed and the gastroenterology service was consulted for possible ERCP. the patient does state that he was diagnosed with gallstones a couple of years ago. He was as ymptomatic and was thus not referred to surgery for cholecystectomy. The patient did have the acute and abrupt onset of epigastric and right upper quadrant abdominal pain on Friday evening and went to the ED at [facility]. He had some EKG changes and was transferred to [facility]. He had normal troponins. Additional evaluation on 12/21/2024 showed stone and sludge in the gallbladder with a distended gallbladder. The patient did have cardiac catheterization which showed the absence of coronary calcification and some nonflow limiting 20 to 25% luminal stenosis of the RCA. His dyspeptic findings were related to biliary colic and cholecystitis. He was referred to Lawrence Hu M.D. who did gallbladder surgery yesterday. The patient's liver and pancreatic chemistries are in normal. At the time of his surgery, there was more severe inflammatory change with purulent hydrops and thickening in the infundibular region. The cystic duct was not identified and there was surrounding necrosis. There was concern of an open cystic duct stump with leak but also no clear defined biliary anatomy and concern for biliary injury. Today, the patient's AST 58, ALT 49 and total bilirubin 1.1 are normal. Procedure: Prior to the procedure, a history and physical exam was performed, and patient's medications and allergies were reviewed. The risks (including pancreatitis), benefits and alternatives of the sedation and procedure were discussed with the patient. All questions were answered and informed consent was obtained. The patient was brought to the fluoroscopic radiology room. Patient identification and proposed procedure were verified by the physician and the nurse. The patient was placed in a swimmer's position between left lateral decubitus and prone position and the scope was passed under direct vision. Throughout the procedure, the patient's blood pressure, pulse, and oxygen saturations were monitored continuously. The ERCP was accomplished without difficulty. The patient tolerated the procedure well. Findings: The duodenoscope was passed directly into the upper esophagus and advanced to the second portion of the duodenum. The fluoroscopic C arm was then placed into position prior to cannulation with the duodenoscope was centered in a L-shaped position fluoroscopically in the second portion of duodenum. The entire endoscopic exam was done in conjunction with fluoroscopy. The cannula was then inserted through the duodenoscope channel and preloaded with low osmolar contrast. The esophagus, stomach and duodenum were grossly normal. 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 The cannula sphincterotome was then placed into position and the CBD was cannulated initially with the tome and then freely cannulated with a guidewire. The cholangiogram showed a normal CBD which was approximately 5 mm in diameter and normal common hepatic duct and intrahepatic biliary system. There were no filling defects. Contrast was injected to see the tree but also the cystic duct stump. The SNEHA drain was in position adjacent to the cystic duct stump. There was minimal to no extravasation of contrast through the stump. There was some retention of contrast within the biliary tree and a biliary sphincterotomy was performed and there was excellent extravasation of bile and contrast with decompression of the biliary tree and no contrast identified outside of the cystic duct. The pancreatic duct was not cannulated intentionally. Impression: 1. Normal biliary tree with minimal extravasation of contrast through the cystic duct stump?status post biliary sphincterotomy with decompression of the biliary tree Plan: I have discussed the findings with general surgery/Lawrence Hu M.D. I will di scuss with family. I would begin to advance diet and patient may go home soon.
--- NOTE | 2024-12-24 12:28 | FL_ITS ---
FINAL REPORT CLINICAL HISTORY: ERCP 2.3 min 83.74 mGy FINDINGS: Fluoroscopy was provided for ERCP. A scope was visualized. 2.3 minutes of fluoroscopy time was reported. 83.74 mGy. IMPRESSION: 2.3 minutes of fluoroscopy time. 83.74 mGy. Reviewed, Interpreted and Dictated by Sparkle Mchugh MD Transcribed by Kady Otero Authenticated and [facility]
--- NOTE | 2024-12-24 12:37 | P.PNANES_ITS ---
[facility] Anesthesia Record Part I Anesthesia Record I Intake, IV Amount: 500 Hydration: Adequate Estimated blood loss (mL): 0 Urine output (mL): 0 Blood Pressure: 158/82 SaO2: 95 Pulse Rate: 55 Airway Patency: Patent Respiratory Rate: 18 Temperature: 98 F Patient is:: Awake and Stable Stable to PACU at:: 12:42
--- NOTE | 2024-12-24 12:45 | EXP.DC.SUM ---
General Admission date:: 12/24/24 Discharge date: 12/24/24 HPI HPI HPI: Mr. De La Torre is a 64-year-old gentleman recently diagnosed with acute calculous cholecystitis. He underwent laparoscopic cholecystectomy on the morning of December 23, 2024. Intraoperative findings included profound inflammatory changes and inability to identify the cystic duct with certainty. Maycol-Moraes drains were placed and the gastroenterology service was consulted for possible ERCP. the patient does state that he was diagnosed with gallstones a couple of years ago. He was asymptomatic and was thus not referred to surgery for cholecystectomy. The patient did have the acute and abrupt onset of epigastric and right upper quadrant abdominal pain on Friday evening and went to the ED at [facility]. He had some EKG changes and was transferred to [facility]. He had normal troponins. Additional evaluation on 12/21/2024 showed stone and sludge in the gallbladder with a distended gallbladder. The patient did have cardiac catheterization which showed the absence of coronary calcification and some nonflow limiting 20 to 25% luminal stenosis of the RCA. His dyspeptic findings were related to biliary colic and cholecystitis. He was referred to Lawrence Hu M.D. who did gallbladder surgery today. The patient's liver and pancreatic chemistries are in normal. Hospital Course Hospital Course Hospital Course: The patient underwent laparoscopic cholecystectomy. Please see operative report for detail. Secondary to inability to definitively identify the cystic duct intraoperatively, the gastroenterology service was consulted. On postoperative day 1 the patient underwent ERCP with sphincterotomy (please see Dr. Roberts' procedure report for detail). Minimal to no extravasation noted. Normal biliary tree anatomy noted. Status post ERCP the patient was deemed appropriate for discharge home. Condition at discharge: At the time of discharge patient was afebrile with stable and normal vital signs. He was ambulating and tolerating advancement of his diet. Exam Data for Last 24 hours Vital signs and Labs for Last 24 Hours: Temp Pulse Resp BP Pulse Ox O2 Del Method 98 F 62 17 151/71 H 94 L Room Air 12/24/24 12:38 12/24/24 12:42 12/24/24 12:42 12/24/24 12:42 12/24/24 12:42 12/24/24 12:42 Laboratory Results - last 24 hr 12/24/24 05:54: WBC 11.9 H, RBC 4.48 L, Hgb 13.6 L, Hct 39.3 L, MCV 87.7, MCH 30.4, MCHC 34.6, RDW 14.4, Plt Count 265, MPV 12.6 H, Neut % (Auto) 79.0, Lymph % (Auto) 12.2, [place] % (Auto) 7.9, Eos % (Auto) 0.1, Baso % (Auto) 0.2, Neut # (Auto) 9.4 H, Lymph # (Auto) 1.5, [place] # (Auto) 0.9, Eos # (Auto) 0.0, Baso # (Auto) 0.0, Sodium 139, Potassium 4.4, Chloride 108 H, Carbon Dioxide 24, Anion Gap 11.4, BUN 15, Creatinine 1.00, Estimated Creat Clear 106, Estimated GFR 75, Est GFR ( Amer) 91, Glucose 113 H, Calcium 8.4, Total Bilirubin 1.1, AST 58, ALT 49, Alkaline Phosphatase 50, Total Protein 6.4, Albumin 3.5, Globulin 2.9, Albumin/Globulin Ratio 1.2 I & O for Last 24 hours: Intake & Output 12/22/24 12/23/24 12/24/24 12/25/24 11:59 11:59 11:59 11:59 Intake Total 1300 / 1300 3360 / 3360 500 / 500 Output Total 210 / 210 Balance 1300 / 1300 3150 / 3150 500 / 500 Weight 225 lb 9 oz 223 lb 5.252 oz Constitutional Constitutional: no acute distress *Routine HEENT Exam Head: Present normocephalic Eye: Present EOMI ENT: Present mucous membranes moist *Routine Neck Exam Neck: Present full ROM Routine Chest/Breast/Axilla Exam Chest wall: Absent tenderness *Routine Respiratory Exam Respiratory: Absent respiratory distress *Routine Cardiovascular Exam Cardiovascular: Absent tachycardia *Routine Abdominal Exam Abdominal: Present soft *Routine Rectal Exam Patient deferred: visual exam *Routine Exam Patient deferred: penile exam *Routine Extremities Exam Extremities: Present full ROM Routine Back/Spine/Pelvis Exam Back/Spine: Present full ROM *Routine Skin Exam Skin: Absent erythema *Routine Neurological Exam Neurological: Present alert Routine Psychiatric Exam Psychiatric: Present normal affect Results Data Completed and Pending Labs on day of discharge: Labs from last 24 hours 12/24/24 05:54 WBC 11.9 H RBC 4.48 L Hgb 13.6 L Hct 39.3 L MCV 87.7 MCH 30.4 MCHC 34.6 RDW 14.4 Plt Count 265 MPV 12.6 H Neut % (Auto) 79.0 Lymph % (Auto) 12.2 [place] % (Auto) 7.9 Eos % (Auto) 0.1 Baso % (Auto) 0.2 Neut # (Auto) 9.4 H Lymph # (Auto) 1.5 [place] # (Auto) 0.9 Eos # (Auto) 0.0 Baso # (Auto) 0.0 Sodium 139 Potassium 4.4 Chloride 108 H Carbon Dioxide 24 Anion Gap 11.4 BUN 15 Creatinine 1.00 Estimated Creat Clear 106 Estimated GFR 75 Est GFR ( Amer) 91 Glucose 113 H Calcium 8.4 Total Bilirubin 1.1 AST 58 ALT 49 Alkaline Phosphatase 50 Total Protein 6.4 Albumin 3.5 Globulin 2.9 Albumin/Globulin Ratio 1.2 DS: Diagnosis Discharge Diagnosis (1) Acute calculous cholecystitis: Status: Acute Code(s): K80.00 - Calculus of gallbladder with acute cholecystitis without obstruction Meds Home Medications and Allergies Home Medications ?Medication ?Instructions ?Recorded ?Confirmed ?Type Lactobacillus rhamnosus-Bifidobac. 1 cap PO DAILY 12/20/24 12/23/24 History animalis 3 billion cell capsule ([employer]) dicyclomine 20 mg tablet 20 mg PO DAILY 12/20/24 12/23/24 History losartan 50 mg tablet 50 mg PO DAILY 12/20/24 12/23/24 History multivit,stress formula-zinc tablet 1 tab PO DAILY 12/20/24 12/23/24 History pantoprazole 40 mg tablet,delayed 40 mg PO HS 12/20/24 12/23/24 History release hydrocodone 5 mg-acetaminophen 325 1 tab PO Q6H PRN post-op pain #17 12/23/24 Rx mg tablet tabs New Prescriptions to Start Prescriptions: hydrocodone-acetaminophen Lawrence Hu Allergies Allergy/AdvReac Type Severity Reaction Status Date / Time No Known Allergies Allergy Verified 12/19/24 21:57 Discharge Plan Disposition Patient Disposition: Home, Self-Care Discharge Order Discharge Orders: Discharge Order (Routine); Ordered 12/24/24 Ordered By: Lawrence Hu Follow up Plan Follow up with: Andre Tellez MD [Staff Physician, General Surgery] - 12/30/24 Referral Note: possible SNEHA removal Lawrence Hu MD [Staff Physician, General Surgery] - 01/05/25 Prescriptions/Medication Reconciliation: New hydrocodone-acetaminophen 5-325 mg tablet 1 tab PO Q6H PRN (Reason: post-op pain) Qty: 17 0RF Continued losartan 50 mg tablet 50 mg PO DAILY Patient Comments: TAKE 1 TABLET BY MOUTH EVERY DAY TO IMPROVE BLOOD PRESSURE pantoprazole 40 mg tablet,delayed release (DR/EC) 40 mg PO HS Patient Comments: TAKE 1 TABLET BY MOUTH EVERY DAY dicyclomine 20 mg Tablet 20 mg PO DAILY multivit,stress formula-zinc Tablet 1 tab PO DAILY MentiNova 3 billion cell Capsule 1 cap PO DAILY Problem Reconciliation Problems Reviewed?: Yes Patient Discharge Instructions ACTIVITY: Ambulate as tolerated and No heavy lifting DIET: advance to your usual diet Additional Instructions: Remove dressings and shower after 48 hours Leave Steri-Strips intact Patient Instructions: DI for Maycol-Moraes Drains, How to Use and Care for Your Maycol-Moraes Drain, DI for Surgical Site Infection, DI for Laparoscopic Cholecystectomy Print Language: Vietnamese Providers Primary Care Provider: Ifeanyi Grewal Admit Provider: Lawrence Hu Attending Provider: Lawrence Hu
[2024-12-24] MEDS: IOPAMIDOL-370 (76%);100ML BOTTLE 50 ML IV (13:51)
--- NOTE | 2024-12-27 08:26 | EXP.ANES.II ---
[facility] Anesthesia Record Part II Anesthesia Record Part II Discharge Time: 13:02 Destination: Medical Surgical Department PACU nurse assessment reviewed?: Yes Patient Condition:: Good Anesthesia Complications:: None Swallowing reflex intact?: Yes Airway Patency: Patent Cyanosis?: No Blood Pressure: 157/87 SaO2: 94 Respiratory Rate: 17 Pulse Rate: 48 Temperature: 98.0 F Mental Status: Alert & Oriented Pain level:: 0 Nausea and/or vomitting:: None Intake, IV Amount: 0 Hydration: Adequate
[2024-12-27 08:28] VITALS: BP 157/87; PULSE 48; RESP 17; TEMP 36.7; O2SAT 94
--- NOTE | 2024-12-27 10:47 | SW/DCPLANNER ---
Spoke with patient on the phone. Patient stated that he is doing alot better. Patient stated that he is aware of his upcoming appointments. Patient stated that he was able to get his new medicine picked up from [facility] pharmacy. Patient stated that he has no concerns or questions at this time. Janice Stroud
== END 2024-12-24 15:20 | disposition home or self-care (01) | DRG 418 ==
LOC: 2ND 11:58
PROVIDERS: Internal Medicine Gastroenterology; Admitting Provider Surgery; PCP Family Medicine; Visit Provider Surgery
PROC: 0FT44ZZ Resection of Gallbladder, Percutaneous Endoscopic Approach (ICD-10-PCS; CPT 47562; principal; 2024-12-23 09:20)
PROC: 0FJB8ZZ Inspection of Hepatobiliary Duct, Via Natural or Artificial Opening Endoscopic (ICD-10-PCS; CPT 43260; principal; 2024-12-24 11:35)
DX: K80.00 Calculus of gallbladder with acute cholecystitis without obstruction (principal); K82.1 Hydrops of gallbladder; I10 Essential (primary) hypertension; K82.A1 Gangrene of gallbladder in cholecystitis; Z79.899 Other long term (current) drug therapy; Z83.79 Family history of other diseases of the digestive system
CPT/HCPCS: 36415; 74330; 76000; 80053; 85025; 96374; C1769; G0378; J0690; J1100; J1650; J2003; J2250; J2270; J2405; J2470; J2543; J2704; J3010; J7030; J7120; Q9967

== ENCOUNTER 2025-01-26 09:14 | Outpatient (CLI) | payer MEDICARE, OTHER, SELFPAY | END 2025-01-26 23:59 | disposition home or self-care (01) | LOC: LAB 09:14 | PROVIDERS: PCP Family Medicine; Visit Provider Internal Medicine Gastroenterology | DX: K50.90 Crohn's disease, unspecified, without complications (principal) | CPT/HCPCS: 36415; 86256; 86671 ==

== ENCOUNTER 2025-04-06 07:27 | Day surgery (SDC) | payer MEDICARE, OTHER, SELFPAY ==
--- NOTE | 2025-03-31 07:18 | EXP.HP ---
History of Present Illness *Admission Date: 04/06/25 *History of present illness: Mr. De La Torre is a 65-year-old gentleman who is here for screening/surveillance colonoscopy for surveillance secondary to a personal history of Crohn's disease. The patient had been followed with Dr. Bowen Wilson MD at [facility]. The patient did have panendoscopy. The findings within the ileum showed focal ileal ulceration that was described as either mild Crohn's versus NSAID enteropathy. The patient also had CT and MR enterography and the MR enterography did show findings consistent with Crohn's disease of the ileum and ileocecal junction. There was some wall thickening more than 3 mm. The patient's chief complaints are urgency and diarrhea. He formerly had crampy abdominal discomfort. He has improved with his regimen of dicyclomine, polycarbophil (1 capsule) and [employer] probiotic. He also is now following dietary measures. He has not started any maintenance of remission therapy for Crohn's. The patient did have labs on 01/26/2025 showing an elevated ASCA IgG antibody (36.1) and an elevated p-ANCA. He recently had cholecystectomy. There was some concern of bile duct injury. He had an ERCP that did not show any extravasation and biliary sphincterotomy was performed because of potential bile duct leak. The patient's last colonoscopy was in March 2023. He does have low B12 levels. He reports no abdominal pain, gassiness or bloating. He reports no rectal bleeding or mucus. The examination is deemed medically necessary for screening/surveillance colonoscopy. The patient has been seen, interviewed and examined prior to the procedure by both myself and the anesthesia provider. [facility] Disclaimer: The information contained in this section may have been updated after the patient was seen, as this information can be updated by other users. Medical History Crohn's disease Hypertension Surgical History History of laparoscopic cholecystectomy Family History Mother Family history of Crohn's disease Social History Smoking Status: Never smoker alcohol intake: never substance use type: denies use current occupational status: retired Travel in the last 8 weeks?: None Have you lived/traveled outside US in past 30 days?: No Contact w/someone who lives/traveled outside US past 30 days?: No Exposure to someone with infectious disease in past 14 days?: No Do you have a fever (greater than 100.4 F or 38 C)?: No Have you tested positive for COVID-19?: No Exposed to someone with COVID-19 in past 14 days?: No Do you have a sore throat?: No Do you have a cough?: No Do you have any weakness?: No Are you experiencing any nausea/vomitting?: No Do you have any diarrhea?: No Are you experiencing any unusual bleeding?: No Do you have any muscle aches/pain?: No Do you have any abdominal pain?: No Are you experiencing loss of taste or smell?: No Other Medical History Have you received the Flu Vaccine for this season: No Have you received the Pneumonia Vaccine: No Review of Systems Review of Systems Review of systems (narrative): Negative *Cardiovascular Comments: Negative *Gastrointestinal Comments: Negative *Genitourinary Comments: Negative *Musculoskeletal Comments: Negative *Neurologic Comments: Negative Meds Home Medications and Allergies Home Medications ?Medication ?Instructions ?Recorded ?Confirmed ?Type Lactobacillus rhamnosus-Bifidobac. 1 cap PO DAILY 12/20/24 04/06/25 History animalis 3 billion cell capsule ([employer]) dicyclomine 20 mg tablet 20 mg PO DAILY 12/20/24 04/06/25 History losartan 50 mg tablet 50 mg PO DAILY 12/20/24 04/06/25 History multivit,stress formula-zinc tablet 1 tab PO DAILY 12/20/24 04/06/25 History pantoprazole 40 mg tablet,delayed 40 mg PO HS 12/20/24 04/06/25 History release calcium polycarbophil 625 mg 625 mg PO DAILY 01/26/25 04/06/25 History tablet (Fiber Therapy (ca polycarbophil)) colestipol 1 gram tablet 1 g PO .At bedtime #30 tabs 01/26/25 04/06/25 Rx sodium,potassium,mag sulfates 17.5 See Rx Instructions PO .COMPLEX 03/24/25 04/06/25 Rx gram-3.13 gram-1.6 gram oral soln #354 mL (Suprep Bowel Prep Kit) New Prescriptions to Start Prescriptions: Allergies Allergy/AdvReac Type Severity Reaction Status Date / Time No Known Allergies Allergy Verified 04/06/25 08:00 Exam *Routine HEENT Exam Head: Present normocephalic Eye: Present EOMI and PERRL ENT: Present mucous membranes moist *Routine Neck Exam Neck: Present supple *Routine Respiratory Exam Respiratory: Present CTA bilaterally *Routine Cardiovascular Exam Cardiovascular: Present RRR *Routine Abdominal Exam Abdominal: Present soft and normoactive bowel sounds; Absent tenderness *Routine Rectal Exam Rectal:: deferred *Routine Genitalia Exam Genitalia:: deferred *Routine Extremities Exam Extremities: Absent cyanosis, clubbing or edema *Routine Skin Exam Skin: Present warm; Absent rash *Routine Neurological Exam Neurological: Present alert and oriented X3 Assessment and Plan *Assessment and plan (1) History of Crohn's disease: Status: Acute Category: Medical Code(s): Z87.19 - Personal history of other diseases of the digestive system (2) Fecal urgency: Status: Acute Category: Medical Code(s): R15.2 - Fecal urgency (3) Diarrhea: Status: Acute Category: Medical Code(s): R19.7 - Diarrhea, unspecified (4) Ileitis, terminal: Status: Acute Category: Medical Code(s): K50.00 - Crohn's disease of small intestine without complications (5) Elevated anti-Saccharomyces cerevisiae antibody: Status: Acute Category: Medical Code(s): R76.89 - Other specified abnormal immunological findings in serum Plan A/P: 1. Personal history of Crohn's disease with urgency and diarrhea is the preprocedural diagnosis. The patient is not on any maintenance of remission therapy. The patient will be anesthetized/sedated using MAC sedation. The patient has been seen and examined. Cardiac and lung assessment prior to the examination is stable. Proceed with planned colonoscopy.
[2025-04-05 13:09] VITALS: BMI 30.2
--- NOTE | 2025-04-06 07:04 | HMH.PROCNOTE ---
[facility] Procedure Note Date: 04/06/25 Time: 09:21 Procedure Note:: Colonoscopy Procedure Report: Colonoscopy with cold biopsies Endoscopist: Zaki Roberts II, MD Referring physician: Ifeanyi Grewal MD Date of Procedure: April 06, 2025 Equipment: Olympus [id number] adult colonoscope Sedation: MAC sedation Indication: Mr. De La Torre is a 65-year-old gentleman who is here for screening/surveillance colonoscopy for surveillance secondary to a personal history of Crohn's disease. The patient had been followed with Dr. Bowen Wilson MD at [facility]. The patient did have panendoscopy. The findings within the ileum showed focal ileal ulceration that was described as either mild Crohn's versus NSAID enteropathy. The patient also had CT and MR enterography and the MR enterography did show findings consistent with Crohn's disease of the ileum and ileocecal junction. There was some wall thickening more than 3 mm. The patient's chief complaints are urgency and diarrhea. He formerly had crampy abdominal discomfort. He has improved with his regimen of dicyclomine, polycarbophil (1 capsule) and [employer] probiotic. He also is now following dietary measures. He has not started any maintenance of remission therapy for Crohn's. The patient did have labs on 01/26/2025 showing an elevated ASCA IgG antibody (36.1) and an elevated p-ANCA. He recently had cholecystectomy. There was some concern of bile duct injury. He had an ERCP that did not show any extravasation and biliary sphincterotomy was performed because of potential bile duct leak. The patient's last colonoscopy was in March 2023. He does have low B12 levels. He reports no abdominal pain, gassiness or bloating. He reports no rectal bleeding or mucus. The examination is deemed medically necessary for screening/surveillance colonoscopy. Procedure: Prior to the procedure, a history and physical exam was performed, and patient's medications and allergies were reviewed. The risks, benefits and alternatives of the sedation and procedure were discussed with the patient. All questions were answered and informed consent was obtained. The patient was brought to the procedure room. Patient identification and proposed procedure were verified by the physician and the nurse. The patient was placed in a left lateral decubitus position and the scope was passed under direct vision. Throughout the procedure, the patient's blood pressure, pulse, and oxygen saturations were monitored continuously. The colonoscopy was accomplished without difficulty. The patient tolerated the procedure well. Findings: On digital rectal examination there was normal rectal tone. There were external hemorrhoidal tags. The prostate was 2-3+ with some asymmetry and left lateral margin prostate nodule. The colonoscope was introduced through the anal canal to the rectum and advanced to the cecum. The ileocecal valve and appendiceal orifice were identified. The scope was advanced 10 to 15 cm into the ileum. There were aphthous ulcerations and aphthous erosions consistent with mild to moderate Crohn's disease of the ileum/Crohn's ileitis. There were no strictures, fistulas or significant fibrostenosis. Multiple biopsies were obtained from the ileum. The scope was then withdrawn into the colon. The cecum, ascending, transverse, descending, sigmoid and rectum were grossly normal. There were no colonic mucosal abnormalities identified and no Crohn's colitis. Upon retroflexion within the rectum there were grade 2 internal hemorrhoids. The preparation was excellent throughout with [place] Preparation Score of 9. The cecal time was 12 minutes. Impression: 1. Mild to moderate Crohn's ileitis (Crohn's disease of the small intestine) 2. Grade 2 internal hemorrhoids with external hemorrhoidal tags 3. Asymmetric firm prostate with left lateral margin nodule Plan: I will follow-up the biopsies and discussed maintenance of remission therapy because of the natural history of Crohn's disease and large potential for eventual fibrostenosis/scarring. I will also obtain PSA today.
[2025-04-06 08:01] VITALS: BP 131/80; PULSE 60; RESP 16; TEMP 36.1; O2SAT 95
[2025-04-06] MEDS: LACTATED RINGERS 1000ML 1,000 ML 50 ML IV (08:07)
--- NOTE | 2025-04-06 08:36 | P.PNANES_ITS ---
[facility] Disclaimer: The information contained in this section may have been updated after the patient was seen, as this information can be updated by other users. Medical History Crohn's disease Hypertension Surgical History History of laparoscopic cholecystectomy Family History Mother Family history of Crohn's disease Social History Smoking Status: Never smoker alcohol intake: never substance use type: denies use current occupational status: retired Travel in the last 8 weeks?: None Have you lived/traveled outside US in past 30 days?: No Contact w/someone who lives/traveled outside US past 30 days?: No Exposure to someone with infectious disease in past 14 days?: No Do you have a fever (greater than 100.4 F or 38 C)?: No Have you tested positive for COVID-19?: No Exposed to someone with COVID-19 in past 14 days?: No Do you have a sore throat?: No Do you have a cough?: No Do you have any weakness?: No Are you experiencing any nausea/vomitting?: No Do you have any diarrhea?: No Are you experiencing any unusual bleeding?: No Do you have any muscle aches/pain?: No Do you have any abdominal pain?: No Are you experiencing loss of taste or smell?: No [facility] Anesthesia Checklist Patient Identification Patient Identification: Arm Band and Family Structural Data Admitted From: Home Planned Operative Procedure/s: Colonoscopy Consent for Planned Operative Procedure(s) Verified: Yes Verified Documents: Surgical Consent, History and Physical and Cardiac Clearance NPO Status Verified Time NPO: 00:00 Additional verifications Patient : No Anesthesia Reactions: No Hx Blood Transfusions: No Blood Transfusion Reaction: No Cephalosporin Allergy: No Previous Colonoscopy: Yes Airway Assessment Mallampati Score:: Class II C-Spine Mobility Assessed: Yes TMJ Mobility Assessed: Yes Dentition: Good Dentition Neurological Assessment Level of Consciousness: Awake, Alert, Appropriate and Follows Commands Hx Seizures: No Numbness or tingling in extremities: No Anesthesia Plan Anesthesia Risk discussed: Yes ASA Class: II Anesthesia Type: MAC Preoperative Comments Pre-Operative Comments: Patient says that although EKG looks crazy , that cardiac evaluation is normal.
[2025-04-06 09:22] VITALS: BP 122/70; PULSE 53; RESP 18; TEMP 36.3; O2SAT 93
[2025-04-06 09:32] VITALS: BP 135/70; PULSE 51; O2SAT 98
[2025-04-06 09:42] VITALS: BP 142/71; PULSE 50; O2SAT 97
[2025-04-06 09:52] VITALS: BP 120/84; PULSE 51; O2SAT 98
[2025-04-06 11:24] LABS: Prostate Specific Ag, Diagnost 0.531 ng/ml (0.0-4.0)
== END 2025-04-06 09:52 | disposition home or self-care (01) ==
PROVIDERS: PCP Family Medicine; Visit Provider Internal Medicine Gastroenterology
PROC: 0DJD8ZZ Inspection of Lower Intestinal Tract, Via Natural or Artificial Opening Endoscopic (ICD-10-PCS; CPT 45378; principal; 2025-04-06 09:00)
DX: K50.918 Crohn's disease, unspecified, with other complication (principal); R15.2 Fecal urgency; R19.7 Diarrhea, unspecified; R76.89 Other specified abnormal immunological findings in serum; Z90.49 Acquired absence of other specified parts of digestive tract; E53.8 Deficiency of other specified B group vitamins; N40.0 Benign prostatic hyperplasia without lower urinary tract symptoms; K64.4 Residual hemorrhoidal skin tags; K64.1 Second degree hemorrhoids
CPT/HCPCS: 45380; 36415; 84153; 88305; J2003; J2704; J7120